=== PATIENT | female | born 1955 | race Caucasian/White ===

== ENCOUNTER → 2018-06-23 08:39 | Outpatient (CLI) | payer OTHER, SELFPAY ==
[2018-06-23 09:04] LABS: Add Manual Diff / Slide Review NO; Basophils Percent Auto 0.9 % (0-2); Eosinophils Percent Auto 1.7 % (2-4); Hemoglobin 14.5 g/dL (12.0-16.0); Lymphocytes Percent Auto 22.5 % (25-40); Mean Corpuscular HGB Conc 34.5 % (30-36); Mean Corpuscular Hemoglobin 30.9 PG (26-34); Mean Corpuscular Volume 89.4 fL (80-100); Monocytes Percent Auto 8.8 % (3-14); Neutrophils Absolute Auto 3900 /uL (3000-5900); Neutrophils Percent Auto 66.1 % (50-75); Platelet Count 301 X10^3/uL (150-400); Red Cell Distribution Width 12.1 % (11.6-14.8); White Blood Cell Count 5.8 X10^3/uL (4.5-11.0)
[2018-06-23 09:22] LABS: BUN Creatinine Ratio 22.9 (6-22); Blood Urea Nitrogen 16 mg/dL (7-17); Calcium 9.7 mg/dL (8.4-10.2); Carbon Dioxide 32 mmol/L (22-32); Chloride 103 mmol/L (98-107); Cholesterol 145 mg/dL (140-199); Estimated Glomerular Filt Rate > 60.0 mL/min (>60); Glucose 91 mg/dL (80-110); HDL Cholesterol 51 mg/dL (40-60); HEMOLYSIS < 15 (0-50); LDL Cholesterol Calculated 72 mg/dL (<100); Potassium 4.6 mmol/L (3.4-5.1); Sodium 143 mmol/L (137-145); Triglycerides 110 mg/dL (35-150)
[2018-06-23 10:08] LABS: Thyroid Stimulating Hormone 3.65 uIU/mL (0.47-4.68)
== END ==
PROVIDERS: PCP Registered Nurse; Visit Provider Registered Nurse
DX: E03.9 Hypothyroidism, unspecified (principal); E78.2 Mixed hyperlipidemia; Z13.9 Encounter for screening, unspecified
CPT/HCPCS: 36415; 80048; 80061; 84443; 85025

== ENCOUNTER → 2018-09-21 10:34 | Outpatient (CLI) | payer OTHER, SELFPAY ==
--- NOTE | 2018-09-21 10:35 | DI.MG.S_ITS ---
BILATERAL DIGITAL SCREENING MAMMOGRAM 3D/2D WITH CAD: 09/21/2018 CLINICAL: Routine screening. Family history of breast cancer. Comparison is made to exams dated: 07/21/2017 mammogram, 07/13/2016 mammogram - The imaging center [facility], and 09/04/2015 mammogram - [facility]. The tissue of both breasts is heterogeneously dense. This may lower the sensitivity of mammography. Current study was also evaluated with a Computer Aided Detection (CAD) system. No significant masses, calcifications, or other findings are seen in either breast. There has been no significant interval change. IMPRESSION: NEGATIVE There is no mammographic evidence of malignancy. A 1 year screening mammogram is recommended. This exam was interpreted at Station ID: [id number]. NOTE: For mammograms, a report in lay terms will be sent to the patient. Approximately 15% of breast malignancies will not be visualized mammographically. In the management of a palpable breast mass, a negative mammogram must not discourage biopsy of a clinically suspicious lesion. Electronically Signed By: Dee erwin/boom:09/21/2018 16:25:30 letter sent: Normal Exam ACR BI-RADS Category 1: Negative 3341F
== END ==
PROVIDERS: Family Provider Family Medicine; PCP Registered Nurse; Visit Provider Registered Nurse
DX: Z12.31 Encounter for screening mammogram for malignant neoplasm of breast (principal); Z80.3 Family history of malignant neoplasm of breast
CPT/HCPCS: 77063; 77067

== ENCOUNTER → 2019-01-13 09:16 | Outpatient (CLI) | payer OTHER, SELFPAY ==
[2019-01-17 12:26] LABS: Fecal Immunochemical Test NOT DETECTED (NOT DETECTED)
== END ==
PROVIDERS: PCP Registered Nurse; Visit Provider Registered Nurse
DX: Z12.11 Encounter for screening for malignant neoplasm of colon (principal); Z12.12 Encounter for screening for malignant neoplasm of rectum
CPT/HCPCS: 82274

== ENCOUNTER → 2019-04-18 11:09 | Outpatient (CLI) | payer OTHER, SELFPAY ==
[2019-04-18 11:58] LABS: Cholesterol 163 mg/dL (140-199); HDL Cholesterol 55 mg/dL (40-60); LDL Cholesterol Calculated 82 mg/dL (<100); Triglycerides 129 mg/dL (35-150)
== END ==
PROVIDERS: PCP Registered Nurse; Visit Provider Registered Nurse
DX: E03.9 Hypothyroidism, unspecified (principal); E78.2 Mixed hyperlipidemia
CPT/HCPCS: 36415; 80061; 84443

== ENCOUNTER → 2019-10-07 12:51 | Outpatient (CLI) | payer OTHER, SELFPAY ==
--- NOTE | 2019-10-07 12:51 | DI.MG.S_ITS ---
BILATERAL DIGITAL SCREENING MAMMOGRAM 3D/2D WITH CAD: 10/07/2019 CLINICAL: Routine screening. Family history of breast cancer. Comparison is made to exams dated: 09/21/2018 mammogram - [facility], 07/21/2017 mammogram, and 07/13/2016 mammogram - The imaging center @ [facility]. The tissue of both breasts is heterogeneously dense. This may lower the sensitivity of mammography. Current study was also evaluated with a Computer Aided Detection (CAD) system. No significant masses, calcifications, or other findings are seen in either breast. There has been no significant interval change. IMPRESSION: NEGATIVE There is no mammographic evidence of malignancy. A 1 year screening mammogram is recommended. This exam was interpreted at Station ID: [id number]. NOTE: For mammograms, a report in lay terms will be sent to the patient. Approximately 15% of breast malignancies will not be visualized mammographically. In the management of a palpable breast mass, a negative mammogram must not discourage biopsy of a clinically suspicious lesion. Electronically Signed By: Dee erwin/boom:10/09/2019 14:58:27 letter sent: Normal Exam ACR BI-RADS Category 1: Negative 3341F
== END ==
PROVIDERS: PCP Registered Nurse; Visit Provider Registered Nurse
DX: Z12.31 Encounter for screening mammogram for malignant neoplasm of breast (principal); Z80.3 Family history of malignant neoplasm of breast
CPT/HCPCS: 77063; 77067

== ENCOUNTER → 2019-10-20 10:38 | Outpatient (CLI) | payer OTHER, SELFPAY ==
[2019-10-20 12:23] LABS: Add Manual Diff / Slide Review NO; Basophils Absolute Auto 0 /uL (0-100); Basophils Percent Auto 0.5 % (0-2); Eosinophils Absolute Auto 100 /uL (0-450); Hematocrit 42.3 % (36-46); Hemoglobin 14.1 g/dL (12.0-16.0); Lymphocytes Absolute Auto 1500 /uL (1100-4500); Lymphocytes Percent Auto 22.7 % (25-40); Mean Corpuscular HGB Conc 33.4 % (30-36); Mean Corpuscular Hemoglobin 30.3 PG (26-34); Mean Corpuscular Volume 90.9 fL (80-100); Monocytes Absolute Auto 600 /uL (0-900); Monocytes Percent Auto 9.1 % (3-14); Neutrophils Absolute Auto 4300 /uL (1500-7000); Neutrophils Percent Auto 66.7 % (50-75); Platelet Count 283 X10^3/uL (150-400); Red Blood Cell Count 4.66 X10^6/uL (4.0-5.2); Red Cell Distribution Width 12.5 % (11.6-14.8); White Blood Cell Count 6.4 X10^3/uL (4.5-11.0)
[2019-10-20 12:39] LABS: Rheumatoid Factor < 8.6 IU/mL (<12.0)
[2019-10-20 12:41] LABS: Erythrocyte Sedimentation Rate 8 MM/HR (0-20)
[2019-10-24 08:36] LABS: ANA Pattern NUCLEAR, SPECKLED; ANA Screen, IFA POSITIVE (NEGATIVE); ANA Titer 1:40 titer
== END ==
PROVIDERS: PCP Registered Nurse; Visit Provider Registered Nurse
DX: M25.50 Pain in unspecified joint (principal)
CPT/HCPCS: 36415; 85025; 85651; 86038; 86430

== ENCOUNTER → 2020-05-09 10:44 | Outpatient (CLI) | payer OTHER, SELFPAY ==
[2020-05-09 12:11] LABS: Cholesterol 183 mg/dL (140-199); HDL Cholesterol 59 mg/dL (40-60); LDL Cholesterol Calculated 96 mg/dL (<100); Triglycerides 141 mg/dL (35-150)
[2020-05-09 12:36] LABS: Thyroid Stimulating Hormone 1.34 uIU/mL (0.47-4.68)
== END ==
PROVIDERS: PCP Nurse Practitioner Family; Referring Provider Nurse Practitioner Family; Visit Provider Nurse Practitioner Family
DX: E78.2 Mixed hyperlipidemia (principal); E03.9 Hypothyroidism, unspecified
CPT/HCPCS: 36415; 80061; 84443

== ENCOUNTER → 2020-07-12 15:51 | Outpatient (CLI) | payer OTHER, SELFPAY ==
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
--- NOTE | 2020-07-12 15:57 | DI.RAD.S_ITS ---
PROCEDURE: XR CERVICAL SPINE 2V OR 3V INDICATIONS: Cervical radiculopathy TECHNIQUE: 3 view(s) of the cervical spine were acquired. COMPARISON: None. FINDINGS: Bones: No fracture. Multilevel degenerative endplate sclerosis and spurring. Diffuse facet arthropathy. Straightening of the normal lordotic curvature. Moderate narrowing of the C5-C6 disc space. Chronic 4 mm ossicle projects adjacent to the anterior C3-C4 disc space. Soft tissues: Carotid atherosclerotic plaques incidentally noted. IMPRESSION: Cervical spondylosis. Straightening of the normal lordotic curvature. Dictated by: Jerardo Vasquez M.D. on 07/12/2020 at 16:25 Approved by: Jerardo Vasquez M.D. on 07/12/2020 at 16:26
== END ==
PROVIDERS: PCP Nurse Practitioner Family; Referring Provider Nurse Practitioner Family; Visit Provider Nurse Practitioner Family
DX: M54.12 Radiculopathy, cervical region (principal); M47.812 Spondylosis without myelopathy or radiculopathy, cervical region; M25.512 Pain in left shoulder
CPT/HCPCS: 72040; 73030

== ENCOUNTER → 2020-10-11 16:01 | Outpatient (CLI) | payer OTHER, SELFPAY ==
--- NOTE | 2020-10-11 | DI.MG.S_ITS ---
BILATERAL DIGITAL SCREENING MAMMOGRAM 3D/2D WITH CAD: 10/11/2020 CLINICAL: Routine screening. Family history of breast cancer. Comparison is made to exams dated: 10/07/2019 mammogram, 09/21/2018 mammogram - [facility], and 07/21/2017 mammogram - The imaging center @ [facility]. The tissue of both breasts is heterogeneously dense. This may lower the sensitivity of mammography. Current study was also evaluated with a Computer Aided Detection (CAD) system. No significant masses, calcifications, or other findings are seen in either breast. There has been no significant interval change. IMPRESSION: NEGATIVE There is no mammographic evidence of malignancy. A 1 year screening mammogram is recommended. This exam was interpreted at Station ID: [id number]. NOTE: For mammograms, a report in lay terms will be sent to the patient. Approximately 15% of breast malignancies will not be visualized mammographically. In the management of a palpable breast mass, a negative mammogram must not discourage biopsy of a clinically suspicious lesion. Electronically Signed By: Harvey maravilla/boom:10/11/2020 16:28:18 letter sent: Normal Exam ACR BI-RADS Category 1: Negative [id number]
== END ==
PROVIDERS: PCP Family Medicine; Referring Provider Family Medicine; Visit Provider Family Medicine
DX: Z12.31 Encounter for screening mammogram for malignant neoplasm of breast (principal); Z80.3 Family history of malignant neoplasm of breast
CPT/HCPCS: 77063; 77067

== ENCOUNTER → 2020-10-22 15:29 | Outpatient (CLI) | payer OTHER, SELFPAY ==
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
== END ==
PROVIDERS: PCP Family Medicine; Referring Provider Orthopaedic Surgery; Visit Provider Orthopaedic Surgery
DX: S46.012A Strain of muscle(s) and tendon(s) of the rotator cuff of left shoulder, initial encounter (principal); M19.012 Primary osteoarthritis, left shoulder; X58.XXXA Exposure to other specified factors, initial encounter
CPT/HCPCS: 73221

== ENCOUNTER 2020-10-30 09:45 | Outpatient (RCR) | payer OTHER, SELFPAY ==
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
== END 2020-11-11 14:42 ==
LOC: PHYS 09:45
PROVIDERS: PCP Nurse Practitioner Family; Referring Provider Nurse Practitioner Family; Visit Provider Nurse Practitioner Family
DX: M25.512 Pain in left shoulder (principal); V89.2XXA Person injured in unspecified motor-vehicle accident, traffic, initial encounter; S92.302A Fracture of unspecified metatarsal bone(s), left foot, initial encounter for closed fracture; R26.2 Difficulty in walking, not elsewhere classified; S63.591S Other specified sprain of right wrist, sequela; G25.89 Other specified extrapyramidal and movement disorders; M75.42 Impingement syndrome of left shoulder
CPT/HCPCS: 97010; 97014; 97018; 97032; 97035; 97110; 97112; 97116; 97140; 97162; 97535; G0283

== ENCOUNTER → 2021-08-19 10:52 | Outpatient (CLI) | payer MEDICARE, OTHER, SELFPAY ==
[2021-08-19 12:30] LABS: Add Manual Diff / Slide Review NO; Basophils Absolute Auto 0 /uL (0-100); Basophils Percent Auto 0.9 % (0-2); Eosinophils Absolute Auto 100 /uL (0-450); Eosinophils Percent Auto 1.5 % (2-4); Hematocrit 41.1 % (36-46); Hemoglobin 13.9 g/dL (12.0-16.0); Lymphocytes Absolute Auto 1300 /uL (1100-4500); Mean Corpuscular HGB Conc 33.9 % (30-36); Mean Corpuscular Hemoglobin 30.5 PG (26-34); Mean Corpuscular Volume 89.9 fL (80-100); Monocytes Absolute Auto 300 /uL (0-900); Monocytes Percent Auto 7.6 % (3-14); Neutrophils Absolute Auto 2500 /uL (1500-7000); Platelet Count 269 X10^3/uL (150-400); Red Blood Cell Count 4.57 X10^6/uL (4.0-5.2); Red Cell Distribution Width 12.5 % (11.6-14.8); White Blood Cell Count 4.2 X10^3/uL (4.5-11.0)
[2021-08-19 13:04] LABS: Alanine Aminotransferase 25 IU/L (<35); Albumin 4.4 g/dL (3.5-5.0); Albumin Globulin Ratio 1.6 (1.0-2.8); Alkaline Phosphatase 74 U/L (38-126); Aspartate Aminotransferase 30 IU/L (14-36); BUN Creatinine Ratio 32.3 (6-22); Bilirubin Total 0.5 mg/dL (0.2-1.3); Blood Urea Nitrogen 21 mg/dL (7-17); Calcium 9.8 mg/dL (8.4-10.2); Carbon Dioxide 27 mmol/L (22-32); Chloride 105 mmol/L (98-107); Cholesterol 175 mg/dL (140-199); Estimated Glomerular Filt Rate > 60.0 mL/min (>60); Globulin 2.8 g/dL (1.7-4.1); Glucose 87 mg/dL (80-110); HDL Cholesterol 54 mg/dL (40-60); HEMOLYSIS < 15 (0-50); LDL Cholesterol Calculated 95 mg/dL (<100); Potassium 4.4 mmol/L (3.4-5.1); Sodium 139 mmol/L (137-145); Total Protein 7.2 g/dL (6.3-8.2); Triglycerides 130 mg/dL (35-150)
[2021-08-19 13:21] LABS: Free T4, Direct Thyroxine 1.05 ng/dL (0.78-2.19)
[2021-08-19 13:35] LABS: Thyroid Stimulating Hormone 0.305 uIU/mL (0.47-4.68)
== END ==
PROVIDERS: PCP Family Medicine; Referring Provider Family Medicine; Visit Provider Family Medicine
DX: Z00.00 Encounter for general adult medical examination without abnormal findings (principal); E08.9 Diabetes mellitus due to underlying condition without complications; E78.2 Mixed hyperlipidemia
CPT/HCPCS: 36415; 80053; 80061; 84439; 84443; 85025

== ENCOUNTER → 2021-09-15 09:26 | Outpatient (CLI) | payer MEDICARE, OTHER, SELFPAY ==
[2021-09-15 12:22] LABS: COVID19 -Nasal RAPID Negative (Negative)
== END ==
PROVIDERS: PCP Family Medicine; Visit Provider Nurse Practitioner Family
DX: Z20.822 Contact with and (suspected) exposure to COVID-19 (principal)
CPT/HCPCS: 87635; C9803

== ENCOUNTER → 2021-09-16 08:14 | Outpatient (CLI) | payer MEDICARE, OTHER, SELFPAY ==
--- NOTE | 2021-09-16 09:02 | PM.TREADMILL ---
Cardiac Stress Test Report Referral & Results Date Patient Seen: 09/16/21 Time Patient Seen: 08:45 Requesting provider: Israel Leyva Indication: History of CAD Rest ECG: NSR Procedure Note: Today following both written and verbal informed consent, the patient was exercised according to a standard Rk protocol. The patient exercised for a total of 7 minutes 48 seconds achieving a maximum heart rate of 159. Patient's maximum systolic blood pressure was 182. This was an estimated 10.1 METs. Normal hemodynamic response to exercise. No changes in rhythm or ST segment. No signs or symptoms of angina. Good exercise capacity (FA I -10% on active scale). Impression: Low probability for ischemia. Razo treadmill score of 7 is correlated with 97% 5 year survival rate from cardiac causes of mortality. Please note: Actual ECG tracings can be found in the PACS system.
== END ==
PROVIDERS: PCP Family Medicine; Referring Provider Family Medicine; Visit Provider Family Medicine
DX: I25.10 Atherosclerotic heart disease of native coronary artery without angina pectoris (principal); E78.2 Mixed hyperlipidemia; E03.9 Hypothyroidism, unspecified
CPT/HCPCS: 93016; 93017; 93018

== ENCOUNTER → 2021-10-14 15:53 | Outpatient (CLI) | payer MEDICARE, OTHER, SELFPAY ==
--- NOTE | 2021-10-14 15:55 | DI.MG.S_ITS ---
BILATERAL DIGITAL SCREENING MAMMOGRAM 3D/2D WITH CAD: 10/14/2021 CLINICAL: Routine screening. Family history of breast cancer. Comparison is made to exams dated: 10/11/2020 mammogram, 10/07/2019 mammogram, and 09/21/2018 mammogram - [facility]. The tissue of both breasts is heterogeneously dense. This may lower the sensitivity of mammography. Current study was also evaluated with a Computer Aided Detection (CAD) system. No significant masses, calcifications, or other findings are seen in either breast. There has been no significant interval change. IMPRESSION: NEGATIVE There is no mammographic evidence of malignancy. A 1 year screening mammogram is recommended. This exam was interpreted at Station ID: [id number]. NOTE: For mammograms, a report in lay terms will be sent to the patient. Approximately 15% of breast malignancies will not be visualized mammographically. In the management of a palpable breast mass, a negative mammogram must not discourage biopsy of a clinically suspicious lesion. Electronically Signed By: Markel english/boom:10/15/2021 08:34:17 letter sent: Normal Exam ACR BI-RADS Category 1: Negative [id number]
== END ==
PROVIDERS: PCP Family Medicine; Referring Provider Family Medicine; Visit Provider Family Medicine
DX: Z12.31 Encounter for screening mammogram for malignant neoplasm of breast (principal); Z80.3 Family history of malignant neoplasm of breast
CPT/HCPCS: 77063; 77067

== ENCOUNTER → 2021-11-19 10:01 | Outpatient (CLI) | payer MEDICARE, OTHER, SELFPAY | PROVIDERS: PCP Family Medicine; Referring Provider Family Medicine; Visit Provider Family Medicine | DX: Z78.0 Asymptomatic menopausal state (principal); M85.852 Other specified disorders of bone density and structure, left thigh; E07.9 Disorder of thyroid, unspecified; M19.90 Unspecified osteoarthritis, unspecified site; Z87.891 Personal history of nicotine dependence | CPT/HCPCS: 77080 ==

== ENCOUNTER 2021-12-15 15:15 | Outpatient (RCR) | payer MEDICARE, OTHER, SELFPAY ==
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
--- NOTE | 2020-12-06 12:44 | PT.OPPOC ---
Physical, Occupational & Speech Therapy At [facility] Current Diagnoses Other specified extrapyramidal and movement disorders (12/06/20) Impingement syndrome of left shoulder (12/06/20) Strain of other muscles, fascia and tendons at shoulder and upper arm level, left arm, initial encounter (12/06/20) Visit Care Team Role Provider Type Israel Leyva DO Primary Care Provider Physician Specialty: Family Practice Address: [address] [place] [address], [id number] Email: [email or web address] Trenton Alas MD Attending Provider Physician Referring Provider Specialty: Orthopedic Surgery Address: [address] [place] [address], [id number] Email: [email or web address] Plan Of Care PT-OP-T Assessment and Plan Start: 12/06/20 11:57 Freq: Status: Active Protocol: Document 12/06/20 09:45 HH (Rec: 12/06/20 12:44 HH [email or web address]) Physical Therapy Assessment Goals activity tolerance Impairment pt will be immobilized for next 6 weeks. Usp Goal (LTG) pt will be able to complete cigarette roller such as house 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 LTG Duration 16 weeks HEP Impairment pt does not ahve hep Short Term Goal (STG) pt will comply to HEP independently and safely with proper body mechanics STG Duration 8 weeks strength Impairment pt will be immobilized for next 6 weeks. Usp Goal (LTG) pt will be able to lift >2lbs DB weight more than 5 times in flexion and abduction in standing position which allows her to reach for objects on the shelf LTG Duration 16 weeks ROM Impairment pt will be immobilized for next 6 weeks. Short Term Goal (STG) pt will regain >90 degrees of flexion and abduction passively on L shoulder STG Duration 8 weeks Usp Goal (LTG) pt will regain > 140 degrees of flexion and abduction actively without pain LTG Duration 16 weeks Quickdash Impairment pt scores 100 on quickdash postsurgically Short Term Goal (STG) pt will score <60 on Quickdash to improve her overall mobility and strength STG Duration 8 weeks Usp Goal (LTG) pt will score <40 on Quickdash to improve her overall functional mobility and strength LTG Duration 16 weeks Assessment Summary Assessment Pt is a L hand dominant 65yo female here for postop rehab with her L RTC repair on . Since surgeon recommended pt to be on her sling for the next 6 weeks followed by continuing PT. This session is primarily for pt education on proper fitting for armsling, post op protocol, therapeutic exercises and ADL modication. Pt is receptive and shows good understanding. And she will surely benefit from skilled therapy to improve her overall shoulder mobility and strength in order for her to fully return to PLOF. Will reassess pt's progress in 6 weeks. Physical Therapy Plan Frequency and Duration Frequency of Treatment 2x/Week Duration of Treatment 16 weeks Plan of Care Start Date 12/06/20 Plan of Care End Date 04/05/21 Therapeutic Interventions Therapeutic Interventions Home Exercise Program,Joint Mobilizations,Manual Therapy, Neuromuscular Re-education, Patient/Caregiver Education, Self-Care/Home Management,Soft Tissue Mobilization,Taping, Therapeutic Activities, Therapeutic Exercises Modalities Cold Pack/Ice Massage,Electric Stimulation,Hot Packs, Infrared Therapy,Ultrasound Next Visit Focus/Plan Next Note Type Re-Evaluation Next Visit Plan reassessment for PROM, scar gentle ROM ex as tolerate. Plan of Care Dates Plan of Care Start Date 12/06/20 Plan of Care End Date 04/05/21 Electronically Signed by: Rita Corbett PT 12/06/20 2999 Please Sign and Return: I have reviewed this Plan of Care and certify that the skilled therapy services above are required to meet the patient?s needs. Physician Signature Date Printed Name and Credentials Clinical Instructor Signature Printed Name and Credentials
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
--- NOTE | 2021-04-01 16:20 | PT.OPPOC ---
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) Impingement syndrome of left shoulder (04/01/21) Strain of other muscles, fascia and tendons at shoulder and upper arm level, left arm, initial encounter (04/01/21) Visit Care Team Role Provider Type Israel Leyva DO Primary Care Provider Physician Specialty: Family Practice Address: [address] [place] [address], [address] Email: [email or web address] Trenton Alas MD Attending Provider Physician Referring Provider Specialty: Orthopedic Surgery Address: [address] [place] [address], [address] Email: [email or web address] Plan Of Care PT-OP-T Assessment and Plan Start: 12/06/20 11:57 Freq: Status: Active Protocol: Document 04/01/21 09:48 [facility] (Rec: 04/01/21 10:32 [facility] [id number]) Physical Therapy Assessment Goals activity tolerance Impairment pt will be immobilized for next 6 weeks. 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 04/01/21: patient has been making good progress, though this date reporting increase in pain and decreased tolerance for activity with left UE. LTG Duration 05/01/21 HEP Impairment pt does not have hep Short Term Goal (STG) pt will comply to HEP independently and safely with proper body mechanics 04/01/21: good goal progress, though tends to push too hard and into pain, continues to need education regarding modifications as needed, don't push into pain. Improved tolerance for prone exercises today after modification to hang arm over side of bed. STG Duration 8 weeks strength Impairment pt will be immobilized for next 6 weeks. Care Home Goal (LTG) pt will be able to lift >2lbs DB weight more than 5 times in flexion and abduction in standing position which allows her to reach for objects on the shelf 04/01/21: again, patient had been making good progress but today reporting increase in pain and impingement symptoms. LTG Duration 16 weeks ROM Impairment pt will be immobilized for next 6 weeks. Short Term Goal (STG) pt will regain >90 degrees of flexion and abduction passively on L shoulder STG Duration goal met Booster Pump Oiler Goal (LTG) pt will regain > 140 degrees of flexion and abduction actively without pain LTG Duration goal met Quickdash Impairment pt scores 100 on quickdash postsurgically Short Term Goal (STG) pt will score <60 on Quickdash to improve her overall mobility and strength 04/01/21: goal met STG Duration goal met Booster Pump Oiler Goal (LTG) pt will score <40 on Quickdash to improve her overall functional mobility and strength 04/01/21: good goal progress LTG Duration 05/01/21 Assessment Summary Assessment Patient has overall been making good progress with decreasing pain and improving left shoulder function, though high stress level has definitely impacted her recovery and she needs cues to not push into pain or impingement range of motion. Has had poor tolerance for prone exercises, but improved with emphasis on scapular movement and stabilization with manual facilitation and hanging arm over side of treatment table for normalization of mechanics. Verbal and manual cues for inhibiting upper traps and facilitating scapular stabilizers. Encouraged use of ice at home, again stressed exercise in pain-free ROM and intensity. Feel decrease in thoracic mobility also affecting left shoulder function and we initiated further thoracic mobilization today. Physical Therapy Plan Frequency and Duration Frequency of Treatment 2x/Week Duration of Treatment 4 weeks Plan of Care Start Date 04/01/21 Plan of Care End Date 05/01/21 Therapeutic Interventions Therapeutic Interventions Home Exercise Program,Joint Mobilizations,Manual Therapy, Neuromuscular Re-education, Patient/Caregiver Education, Self-Care/Home Management,Soft Tissue Mobilization,Taping, Therapeutic Activities, Therapeutic Exercises Modalities Cold Pack/Ice Massage,Electric Stimulation,Hot Packs, Infrared Therapy,Iontophoresis ,Ultrasound Next Visit Focus/Plan Next Note Type Treatment Note Next Visit Plan Continue PT to help patient fully recover use of left UE for all usual activities with minimal to no pain. Scapular PNF and stabilization, emphasis on correct muscle activation and mechanics with all exercises, stress relief techniques. Joint mobilization GH and scapulothoracic as indicated. Plan of Care Dates Plan of Care Start Date 04/01/21 Plan of Care End Date 05/01/21 Electronically Signed by: Keshia Arita, PT 04/01/21 [id number] Please Sign and Return: I have reviewed this Plan of Care and certify that the skilled therapy services above are required to meet the patient?s needs. Physician Signature Date Printed Name and Credentials Clinical Instructor Signature Printed Name and Credentials
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
--- NOTE | 2021-06-24 09:43 | PT.OPPOC ---
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) Impingement syndrome of left shoulder (06/24/21) Strain of other muscles, fascia and tendons at shoulder and upper arm level, left arm, initial encounter (06/24/21) Visit Care Team Role Provider Type Israel Leyva DO Primary Care Provider Physician Specialty: Family Practice Address: [address] [place] [address], [address] Email: [email or web address] Trenton Alas MD Attending Provider Physician Referring Provider Specialty: Orthopedic Surgery Address: [address] [place] [address], [address] Email: [email or web address] Plan Of Care PT-OP-T Assessment and Plan Start: 12/06/20 11:57 Freq: Status: Active Protocol: Document 06/24/21 09:43 [facility] (Rec: 06/24/21 10:32 [facility] [id number]) Physical Therapy Assessment Goals activity tolerance Impairment Unable to tolerate usual activities Vice President Regulatory Goal (LTG) pt will be able to complete administrative support associate such as house 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 04/01/21: patient has been making good progress, though this date reporting increase in pain and decreased tolerance for activity with left UE. 04/29/21: improving though reaching overhead or out to the side with any weight is painful, reaching behind her back still some limitations 06/24/21: can now go for walks without shoulder pain, able to gently use squeegie in shower with left UE, but unable to vacuum, carry groceries, or lift with left UE. LTG Duration 08/24/21 HEP Impairment pt does not have hep Short Term Goal (STG) pt will comply to HEP independently and safely with proper body mechanics 04/01/21: good goal progress, though tends to push too hard and into pain, continues to need education regarding modifications as needed, don't push into pain. Improved tolerance for prone exercises today after modification to hang arm over side of bed. 04/29/21: ongoing progression of HEP 06/24/21: continue to modify and progress HEP as indicated, patient doing better at following modifications instead of trying to push through pain STG Duration 07/24/21 Vice President Regulatory Goal (LTG) Patient will be independent and compliant with HEP and community-based ex program as possible for long-term fitness and pain management of her shoulder. 06/24/21: ongoing progression as above LTG Duration 08/24/21 strength Impairment lacking full functional strength left UE Residential Goal (LTG) pt will be able to lift >2lbs DB weight more than 5 times in flexion and abduction in standing position which allows her to reach for objects on the shelf 04/01/21: again, patient had been making good progress but today reporting increase in pain and impingement symptoms. 04/29/21: Patient unable to tolerate lifting 2# overhead or out to side, having more impingment symptoms recently 06/24/21: variable tolerance, at times can lift objects over head, out to side more difficult, sometimes sharp pain with impingement. strength LTG Duration 08/24/21 ROM Impairment pt will be immobilized for next 6 weeks. Short Term Goal (STG) pt will regain >90 degrees of flexion and abduction passively on L shoulder STG Duration goal met Residential Goal (LTG) Patient to be able to reach overhead to 170 degrees of flexion and abduction actively without pain for purposes of ADL's and usual activities 06/24/21: again ability to do this is variable, harder to the outside, and occasional to frequent sharp pains but not always predicatable. LTG Duration 08/24/21 Quickdash Impairment pt scores 100 on quickdash postsurgically Short Term Goal (STG) pt will score <60 on Quickdash to improve her overall mobility and strength 04/01/21: goal met STG Duration goal met Vice President Regulatory Goal (LTG) pt will score <20 on Quickdash to improve her overall functional mobility and strength 04/01/21: good goal progress 06/24/21: 54% LTG Duration 08/24/21 Assessment Summary Assessment Lower trap weakness persists with dysfunctional scapular mechanics and stabilization resulting in impingment of patient shoulder. Trigger points persist in subscap, lats, rhomboids, reviewed self mobilization and release. She requires verbal and manual cues for correct movement and has difficulty feeling correct movement, with overactivation of UT and decreased LT activation. Continue to instruct in prone exercises with UE over side of table for improved GH movement without impingment and all exercises in pain-free ROM and intensity. Recommend further skilled PT to help patient achieve her above PT goals as at this time her function, while improved is still very limited and frequently painful, highly impacting her quality of life. Physical Therapy Plan Frequency and Duration Frequency of Treatment 1-2x/wk Duration of Treatment 8 weeks Plan of Care Start Date 06/24/21 Plan of Care End Date 08/24/21 Therapeutic Interventions Therapeutic Interventions Home Exercise Program,Joint Mobilizations,Manual Therapy, Neuromuscular Re-education, Patient/Caregiver Education, Self-Care/Home Management,Soft Tissue Mobilization,Taping, Therapeutic Activities, Therapeutic Exercises Modalities Cold Pack/Ice Massage,Electric Stimulation,Hot Packs, Infrared Therapy,Iontophoresis ,Ultrasound Next Visit Focus/Plan Next Note Type Treatment Note Next Visit Plan scapular mobilization, scapulohumeral rhythm, and stabilization, trigger point release, and review of self- release. Strengthening throughout shoulder especially external rotation, lower traps for improved mechanics and function right shoulder Plan of Care Dates Plan of Care Start Date 06/24/21 Plan of Care End Date 08/24/21 Electronically Signed by: Keshia Arita, PT 07/02/21 1795 Please Sign and Return: I have reviewed this Plan of Care and certify that the skilled therapy services above are required to meet the patient?s needs. Physician Signature Date Printed Name and Credentials Clinical Instructor Signature Printed Name and Credentials
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
--- NOTE | 2021-07-15 08:14 | PT-OP ANOTE ---
cancelled 07/15,07/17,and 07/21 due to another commitment.
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
--- NOTE | 2021-09-24 10:04 | PT-OP ANOTE ---
cancelled PT appt
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
== END 2021-12-19 09:39 ==
LOC: PHYS 15:15
PROVIDERS: PCP Family Medicine; Referring Provider Physical Medicine & Rehabilitation; Visit Provider Orthopaedic Surgery
DX: S46.812A Strain of other muscles, fascia and tendons at shoulder and upper arm level, left arm, initial encounter (principal); G25.89 Other specified extrapyramidal and movement disorders; M75.42 Impingement syndrome of left shoulder; S46.012A Strain of muscle(s) and tendon(s) of the rotator cuff of left shoulder, initial encounter; M79.672 Pain in left foot; G89.29 Other chronic pain; M25.512 Pain in left shoulder; S62.307A Unspecified fracture of fifth metacarpal bone, left hand, initial encounter for closed fracture
CPT/HCPCS: 97010; 97110; 97113; 97140; 97161; 97535

== ENCOUNTER → 2022-02-19 11:47 | Outpatient (CLI) | payer MEDICARE, OTHER, SELFPAY ==
[2022-02-19 12:15] LABS: Add Manual Diff / Slide Review NO; Basophils Absolute Auto 0 /uL (0-100); Basophils Percent Auto 0.7 % (0-2); Eosinophils Absolute Auto 100 /uL (0-450); Eosinophils Percent Auto 1.6 % (2-4); Hematocrit 38.8 % (36-46); Hemoglobin 13.6 g/dL (12.0-16.0); Lymphocytes Absolute Auto 1300 /uL (1100-4500); Lymphocytes Percent Auto 26.5 % (25-40); Mean Corpuscular HGB Conc 35.1 % (30-36); Mean Corpuscular Hemoglobin 30.7 PG (26-34); Mean Corpuscular Volume 87.3 fL (80-100); Monocytes Absolute Auto 400 /uL (0-900); Monocytes Percent Auto 8.6 % (3-14); Neutrophils Absolute Auto 3100 /uL (1500-7000); Neutrophils Percent Auto 62.6 % (50-75); Platelet Count 287 X10^3/uL (150-400); Red Blood Cell Count 4.44 X10^6/uL (4.0-5.2); Red Cell Distribution Width 11.9 % (11.6-14.8)
[2022-02-19 13:01] LABS: Alanine Aminotransferase 20 IU/L (<35); Albumin 4.4 g/dL (3.5-5.0); Albumin Globulin Ratio 1.6 (1.0-2.8); Alkaline Phosphatase 81 U/L (38-126); Aspartate Aminotransferase 26 IU/L (14-36); BUN Creatinine Ratio 21.9 (6-22); Bilirubin Total 0.5 mg/dL (0.2-1.3); Blood Urea Nitrogen 14 mg/dL (7-17); Calcium 9.5 mg/dL (8.4-10.2); Carbon Dioxide 26 mmol/L (22-32); Chloride 104 mmol/L (98-107); Cholesterol 146 mg/dL (140-199); Estimated Glomerular Filt Rate > 60 mL/min (>60); Globulin 2.7 g/dL (1.7-4.1); Glucose 87 mg/dL (80-110); HDL Cholesterol 47 mg/dL (40-60); HEMOLYSIS < 15 (0-50); LDL Cholesterol Calculated 75 mg/dL (<100); Potassium 4.3 mmol/L (3.4-5.1); Sodium 137 mmol/L (137-145); Total Protein 7.1 g/dL (6.3-8.2); Triglycerides 121 mg/dL (35-150)
[2022-02-19 13:35] LABS: Thyroid Stimulating Hormone 1.23 uIU/mL (0.47-4.68)
== END ==
PROVIDERS: PCP Family Medicine; Referring Provider Family Medicine; Visit Provider Family Medicine
DX: E78.2 Mixed hyperlipidemia (principal); E03.9 Hypothyroidism, unspecified; M25.50 Pain in unspecified joint
CPT/HCPCS: 36415; 80053; 80061; 84439; 84443; 85025

== ENCOUNTER → 2022-10-20 15:06 | Outpatient (CLI) | payer MEDICARE, OTHER, SELFPAY ==
--- NOTE | 2022-10-20 | DI.MG.S_ITS ---
BILATERAL DIGITAL SCREENING MAMMOGRAM 3D/2D WITH CAD: 10/20/2022 CLINICAL: Routine screening. Family history of breast cancer. Comparison is made to exams dated: 10/14/2021 mammogram, 10/11/2020 mammogram, and 10/07/2019 mammogram - [facility]. Both breasts are heterogeneously dense, which may obscure small masses (category c / 51-75% glandular tissue). Current study was also evaluated with a Computer Aided Detection (CAD) system. No significant masses, calcifications, or other findings are seen in either breast. There has been no significant interval change. IMPRESSION: NEGATIVE There is no mammographic evidence of malignancy. A 1 year screening mammogram is recommended. This exam was interpreted at Station ID: [id number]. NOTE: For mammograms, a report in lay terms will be sent to the patient. Approximately 15% of breast malignancies will not be visualized mammographically. In the management of a palpable breast mass, a negative mammogram must not discourage biopsy of a clinically suspicious lesion. Electronically Signed By: Dee erwin/boom:10/21/2022 09:00:02 letter sent: Normal Exam ACR BI-RADS Category 1: Negative [id number]
== END ==
PROVIDERS: PCP Family Medicine; Referring Provider Family Medicine; Visit Provider Family Medicine
DX: Z12.31 Encounter for screening mammogram for malignant neoplasm of breast (principal); Z80.3 Family history of malignant neoplasm of breast
CPT/HCPCS: 77063; 77067

== ENCOUNTER → 2022-10-23 09:38 | Outpatient (CLI) | payer MEDICARE, OTHER, SELFPAY ==
--- NOTE | 2022-10-23 09:43 | DI.RAD.S_ITS ---
PROCEDURE: XR KNEE LT 3V INDICATIONS: Bilateral knee pain TECHNIQUE: 3 views of the knee were acquired. COMPARISON: [facility], KNEE 3V LEFT, 09/02/2011, 9:36. [facility], KNEE 3V RIGHT, 09/02/2011, 9:42. FINDINGS: Bones: No acute fracture or dislocation. No suspicious osseous lesions. Mild progression of moderate left medial and lateral femorotibial compartment degenerative changes. Progression of moderate-severe patellofemoral degenerative changes with increased, near complete joint space loss of the lateral facet. Prominent marginal osteophytes. Mild lateral subluxation. Soft tissues: Small joint effusion. No suspicious soft tissue calcifications. IMPRESSION: Left knee without acute fracture or dislocation. Interval progression of tricompartmental osteoarthrosis of the left knee most severe in the lateral patellofemoral compartment. Small joint effusion. Dictated by: Benito Lin M.D. on 10/23/2022 at 10:40 Approved by: Benito Lin M.D. on 10/23/2022 at 10:42
--- NOTE | 2022-10-23 09:43 | DI.RAD.S_ITS ---
PROCEDURE: XR KNEE RT 3V INDICATIONS: Bilateral knee pain TECHNIQUE: 3 views of the knee were acquired. COMPARISON: [facility], , KNEE 3V RIGHT, 09/02/2011, 9:42. FINDINGS: Bones: No fractures or dislocations. No suspicious bony lesions. Progression of moderate tricompartmental degenerative changes of the right knee with marginal osteophyte formation. Findings are most pronounced in the medial femorotibial compartment and the lateral facet of the patellofemoral compartment. Soft tissues: Small joint effusion. No suspicious soft tissue calcifications. IMPRESSION: Moderate tricompartmental osteoarthrosis of the right knee with small joint effusion. Degenerative changes have progressed compared to September 02, 2011 study. No acute osseous abnormality seen. Dictated by: Benito Lin M.D. on 10/23/2022 at 15:14 Approved by: Benito Lin M.D. on 10/23/2022 at 15:16
[2022-10-23 10:57] LABS: Add Manual Diff / Slide Review NO; Basophils Absolute Auto 0 /uL (0-100); Basophils Percent Auto 0.8 % (0-2); Eosinophils Absolute Auto 100 /uL (0-450); Eosinophils Percent Auto 1.1 % (2-4); Hematocrit 41.5 % (36-46); Hemoglobin 13.9 g/dL (12.0-16.0); Lymphocytes Absolute Auto 1400 /uL (1100-4500); Mean Corpuscular HGB Conc 33.5 % (30-36); Mean Corpuscular Hemoglobin 30.3 PG (26-34); Mean Corpuscular Volume 90.4 fL (80-100); Monocytes Absolute Auto 400 /uL (0-900); Monocytes Percent Auto 7.8 % (3-14); Neutrophils Absolute Auto 3600 /uL (1500-7000); Neutrophils Percent Auto 65.3 % (50-75); Platelet Count 281 X10^3/uL (150-400); Red Blood Cell Count 4.59 X10^6/uL (4.0-5.2); Red Cell Distribution Width 12.2 % (11.6-14.8); White Blood Cell Count 5.5 X10^3/uL (4.5-11.0)
[2022-10-23 11:13] LABS: Alanine Aminotransferase 32 IU/L (<35); Alkaline Phosphatase 86 U/L (38-126); Aspartate Aminotransferase 35 IU/L (14-36); BUN Creatinine Ratio 20.6 (6-22); Bilirubin Total 0.7 mg/dL (0.2-1.3); Blood Urea Nitrogen 13 mg/dL (7-17); Calcium 9.6 mg/dL (8.4-10.2); Carbon Dioxide 28 mmol/L (22-32); Chloride 105 mmol/L (98-107); Cholesterol 173 mg/dL (140-199); Estimated Glomerular Filt Rate > 60 mL/min (>60); Glucose 88 mg/dL (80-110); HDL Cholesterol 61 mg/dL (40-60); HEMOLYSIS < 15 (0-50); LDL Cholesterol Calculated 88 mg/dL (<100); Potassium 4.2 mmol/L (3.4-5.1); Sodium 139 mmol/L (137-145); Total Protein 7.6 g/dL (6.3-8.2); Triglycerides 121 mg/dL (35-150)
[2022-10-23 11:36] LABS: Free T4, Direct Thyroxine 1.11 ng/dL (0.78-2.19)
[2022-10-23 11:50] LABS: Thyroid Stimulating Hormone 2.14 uIU/mL (0.47-4.68)
[2022-10-23 16:43] LABS: Albumin 4.5 g/dL (3.5-5.0); Albumin Globulin Ratio 1.5 (1.0-2.8); Globulin 3.1 g/dL (1.7-4.1)
== END ==
PROVIDERS: PCP Family Medicine; Referring Provider Family Medicine; Visit Provider Family Medicine
DX: M17.0 Bilateral primary osteoarthritis of knee (principal); M25.561 Pain in right knee; M25.562 Pain in left knee; M25.462 Effusion, left knee; M25.461 Effusion, right knee; E03.9 Hypothyroidism, unspecified; E78.2 Mixed hyperlipidemia; K59.01 Slow transit constipation
CPT/HCPCS: 36415; 73562; 80053; 80061; 84439; 84443; 85025

== ENCOUNTER → 2023-04-08 16:32 | Outpatient (CLI) | payer MEDICARE, OTHER, SELFPAY ==
--- NOTE | 2023-04-08 | DI.RAD.S_ITS ---
PROCEDURE: XR LUMBAR SPINE 2-3V INDICATIONS: low back pain TECHNIQUE: 3 views of the lumbar spine were acquired. COMPARISON: None. FINDINGS: Bones: 5 [id number] vertebrae are present. There is 4 mm grade 1 anterolisthesis of L4 on L5. No vertebral body compression fractures. No suspicious bony lesions. Multilevel disc space narrowing and degenerative endplate changes are seen, most prominent L3-4 and L5-S1. Multilevel facet hypertrophy is seen that is most notable at the L4-5 level. Soft tissues: Overlying bowel gas pattern is normal. No suspicious soft tissue calcifications. IMPRESSION: Moderate multilevel spondylosis and degenerative spondylolisthesis. MRI could be performed for further evaluation if indicated clinically. Approved by: Markel Diaz M.D. on 04/08/2023 at 20:38
== END ==
PROVIDERS: PCP Family Medicine; Referring Provider Family Medicine; Visit Provider Family Medicine
DX: M47.816 Spondylosis without myelopathy or radiculopathy, lumbar region (principal); M43.16 Spondylolisthesis, lumbar region; M54.50 Low back pain, unspecified
CPT/HCPCS: 72100

== ENCOUNTER → 2023-04-22 11:12 | Outpatient (CLI) | payer MEDICARE, OTHER, SELFPAY ==
[2023-04-22 13:42] LABS: Alanine Aminotransferase 37 IU/L (<35); Albumin 4.4 g/dL (3.5-5.0); Albumin Globulin Ratio 1.6 (1.0-2.8); Alkaline Phosphatase 81 U/L (38-126); Aspartate Aminotransferase 31 IU/L (14-36); BUN Creatinine Ratio 36.7 (6-22); Bilirubin Total 0.6 mg/dL (0.2-1.3); Blood Urea Nitrogen 22 mg/dL (7-17); Calcium 9.6 mg/dL (8.4-10.2); Carbon Dioxide 27 mmol/L (22-32); Chloride 102 mmol/L (98-107); Cholesterol 192 mg/dL (140-199); Estimated Glomerular Filt Rate > 60 mL/min (>60); Globulin 2.7 g/dL (1.7-4.1); Glucose 81 mg/dL (80-110); HDL Cholesterol 67 mg/dL (40-60); HEMOLYSIS < 15 (0-50); LDL Cholesterol Calculated 98 mg/dL (<100); Potassium 4.7 mmol/L (3.4-5.1); Sodium 136 mmol/L (137-145); Total Protein 7.1 g/dL (6.3-8.2); Triglycerides 135 mg/dL (35-150)
[2023-04-22 13:54] LABS: Free T4, Direct Thyroxine 1.02 ng/dL (0.78-2.19)
[2023-04-22 14:08] LABS: Thyroid Stimulating Hormone 1.03 uIU/mL (0.47-4.68)
== END ==
PROVIDERS: PCP Family Medicine; Referring Provider Family Medicine; Visit Provider Family Medicine
DX: E03.9 Hypothyroidism, unspecified (principal); E78.2 Mixed hyperlipidemia; M85.852 Other specified disorders of bone density and structure, left thigh
CPT/HCPCS: 36415; 80053; 80061; 84439; 84443

== ENCOUNTER → 2023-07-07 10:45 | Outpatient (CLI) | payer MEDICARE, OTHER, SELFPAY ==
--- NOTE | 2023-07-07 10:47 | DI.MRI.S_ITS ---
PROCEDURE: MR HIP LT WO CON INDICATIONS: Hip pain Left TECHNIQUE: Noncontrast coronal T1 spin echo and STIR through the bony pelvis. Coronal and axial T2 fast spin echo with fat saturation, sagittal T1 spin echo, and oblique axial T2 fast spin echo with fat saturation through the hip. COMPARISON: None. FINDINGS: Image quality: Excellent. Bones and joints: Bone marrow of the pelvic ring and proximal femurs show normal signal throughout. No intraosseous lesions or fractures. No avascular necrosis of the femoral heads. Degenerative changes are seen at the pubic symphysis and the included lumbar spine. Tendons and ligaments: The gluteus medius and minimus tendons demonstrate tendinosis. There is focal low-grade partial intrasubstance tearing at the gluteus medius insertion with trace overlying trochanteric bursal fluid. The proximal iliotibial band appears intact. The iliopsoas tendon appears intact, without adjacent bursal fluid collections. The origin of the hamstring tendon demonstrates mild tendinosis. The direct and indirect heads of the rectus femoris muscle origin appear intact. Labrum and cartilage: There is focal nondisplaced tearing at the anterosuperior acetabular labrum. Mild partial-thickness cartilage irregularity at the superior aspect of the left hip. No significant joint effusion. There is normal morphology of the femoral head in the acetabulum. Soft tissues: Visualized muscles demonstrate normal bulk and internal signal. Quadratus femoris muscle demonstrates no internal edema to suggest ischiofemoral impingement. The proximal sciatic neurovascular bundle appears intact. A uterine fibroid is noted. No acute abnormality is seen in the pelvis. IMPRESSION: 1. Focal nondisplaced tearing of the anterosuperior left acetabular labrum. 2. 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 3. Low-grade partial tearing of the distal left gluteus medius tendon at its insertion onto the greater trochanter superimposed on gluteus medius and minimus tendinosis. 4. Mild proximal left hamstring tendinosis. 5. Degenerative changes in the pubic symphysis and included lumbar spine. Approved by: Markel Diaz M.D. on 07/07/2023 at 14:07
--- NOTE | 2023-07-07 10:47 | DI.MRI.S_ITS ---
PROCEDURE: MR HIP RT WO CON INDICATIONS: Right hip pain TECHNIQUE: Noncontrast coronal T1 spin echo and STIR through the bony pelvis. Coronal and axial T2 fast spin echo with fat saturation, sagittal T1 spin echo, and oblique axial T2 fast spin echo with fat saturation through the hip. COMPARISON: None. FINDINGS: Image quality: Excellent. Bones and joints: Bone marrow of the pelvic ring and proximal femurs show normal signal throughout. No intraosseous lesions or fractures. No avascular necrosis of the femoral heads. Degenerative changes are seen at the pubic symphysis and the included lumbar spine. Tendons and ligaments: The gluteus medius and minimus tendons demonstrate mild tendinosis. The proximal iliotibial band appears intact. The iliopsoas tendon appears intact, without adjacent bursal fluid collections. The origin of the hamstring tendon demonstrates mild tendinosis. The direct and indirect heads of the rectus femoris muscle origin appear intact. Labrum and cartilage: Mild intrasubstance degeneration within the right acetabular labrum without a discrete tear seen. Moderate partial-thickness cartilage irregularity at the superior aspect of the right hip with cartilage fissuring and focal subchondral cystic changes. Small small joint effusion. There is normal morphology of the femoral head in the acetabulum. Soft tissues: Visualized muscles demonstrate normal bulk and internal signal. Quadratus femoris muscle demonstrates no internal edema to suggest ischiofemoral impingement. The proximal sciatic neurovascular bundle appears intact. A uterine fibroid is noted. No acute abnormality is seen in the pelvis. IMPRESSION: 1. Grade 2-3 chondromalacia and cartilage fissuring at the superior right hip with focal subchondral cystic changes. 2. Diffuse labral degeneration without a discrete tear visualized. 3. Mild distal right gluteus medius and minimus tendinosis. 4. Mild proximal right hamstring tendinosis. 5. Degenerative changes in the pubic symphysis and included lumbar spine. Approved by: Markel Diaz M.D. on 07/07/2023 at 14:07
--- NOTE | 2023-07-07 10:47 | DI.MRI.S_ITS ---
PROCEDURE: MR LUMBAR SPINE WO CON INDICATIONS: ongoing back pain despite PT TECHNIQUE: Noncontrast sagittal T1 spin echo and T2 fast echo, sagittal STIR, and T2 fast spin echo through the lumbar spine. In cases with scoliosis, additional coronal T2 fast spin echo may be performed. COMPARISON: [facility], CR, XR LUMBAR SPINE 2-3V, 04/08/2023, 16:35. FINDINGS: Image quality: Diagnostic, with note made of motion artifact. Alignment and Curvature: There is minimal retrolisthesis seen at the L2-L3 and L3-L4 levels. Mild grade 1 anterolisthesis is seen at L4-L5. No definite associated pars defects are seen. Bone Marrow: Marrow is of normal overall signal. No acute vertebral body compression fractures. Spinal Cord: Conus medullaris terminates at the L1 level. Visualized cord demonstrates normal signal and size. Paraspinous Soft Tissues: No paravertebral masses. T12-L1: Normal appearance. L1-L2: Normal appearance. L2-L3: The disc height and disk signal are relatively well-preserved. Moderate disc bulge is seen, which is eccentric to the right. Mild facet joint hypertrophy is seen. There is moderate left-sided and at least moderate right-sided neural foraminal narrowing. There is a mild degree of compression seen upon the exiting right L2 nerve root. Mild central canal narrowing is seen. L3-L4: Ejtq-en-ovjirask loss of disc height and disc signal can be seen. Moderate generalized disc bulge is seen. Mild to moderate facet hypertrophy is seen. Associated hypertrophy of the ligamentum flavum can be seen. There is moderate to severe bilateral neural foraminal narrowing seen, with an associated a degree of compression seen upon the exiting nerve roots. At least moderate central canal narrowing is seen, as on series 6, image 4. L4-L5: The disc height and disk signal are relatively well-preserved. Moderate generalized disc bulge is seen. There is a superimposed central disc protrusion. Moderate to prominent facet hypertrophy is seen. Associated hypertrophy of the ligamentum flavum can be seen. Fluid is seen within the facet joints themselves. There is moderate to severe bilateral neural foraminal narrowing seen, with an associated a degree of compression seen upon the exiting nerve roots. There is severe central canal narrowing, as on series 6, image 10. L5-S1: Moderate to severe loss of disc height and disc signal can be seen. Reactive marrow endplate changes are seen, which are hyperintense on T1-weighted and T2-weighted imaging and most consistent with fatty metaplasia (Modic type II changes). Moderate disc bulge is seen, which is eccentric to the left. Mild to moderate facet hypertrophy is seen. There is moderate to severe left-sided and at least moderate right-sided neural foraminal narrowing. There is a degree of compression seen upon the exiting nerve roots. Mild central canal narrowing is seen. IMPRESSION: Multiple levels of significant lower lumbar spine degenerative change can be seen. There is severe central canal narrowing at L4-L5, with at least moderate central canal narrowing at L3-L4. Several sites of significant neural foraminal narrowing can be seen, with associated exiting nerve root compression. Dictated by: Adrian York M.D. on 07/07/2023 at 11:30 Approved by: Adrian York M.D. on 07/07/2023 at 11:34
== END ==
PROVIDERS: PCP Family Medicine; Referring Provider Family Medicine; Visit Provider Family Medicine
DX: M54.41 Lumbago with sciatica, right side (principal); G89.29 Other chronic pain; M25.551 Pain in right hip; M25.552 Pain in left hip; M48.061 Spinal stenosis, lumbar region without neurogenic claudication; M94.251 Chondromalacia, right hip; M76.01 Gluteal tendinitis, right hip; M76.891 Other specified enthesopathies of right lower limb, excluding foot; S73.192A Other sprain of left hip, initial encounter; M94.252 Chondromalacia, left hip; S76.812A Strain of other specified muscles, fascia and tendons at thigh level, left thigh, initial encounter; M76.02 Gluteal tendinitis, left hip; M76.892 Other specified enthesopathies of left lower limb, excluding foot
CPT/HCPCS: 72148; 73721

== ENCOUNTER → 2023-09-01 09:33 | Outpatient (CLI) | payer MEDICARE, OTHER, SELFPAY ==
[2023-09-01 11:10] LABS: Alanine Aminotransferase 64 IU/L (<35); Albumin 4.4 g/dL (3.5-5.0); Albumin Globulin Ratio 1.6 (1.0-2.8); Alkaline Phosphatase 79 U/L (38-126); Aspartate Aminotransferase 49 IU/L (14-36); BUN Creatinine Ratio 21.7 (6-22); Bilirubin Total 0.8 mg/dL (0.2-1.3); Blood Urea Nitrogen 15 mg/dL (7-17); Calcium 9.7 mg/dL (8.4-10.2); Carbon Dioxide 28 mmol/L (22-32); Chloride 103 mmol/L (98-107); Cholesterol 153 mg/dL (140-199); Estimated Glomerular Filt Rate > 60 mL/min (>60); Globulin 2.8 g/dL (1.7-4.1); Glucose 88 mg/dL (80-110); HDL Cholesterol 49 mg/dL (40-60); HEMOLYSIS < 15 (0-50); LDL Cholesterol Calculated 76 mg/dL (<100); Sodium 136 mmol/L (137-145); Total Protein 7.2 g/dL (6.3-8.2); Triglycerides 139 mg/dL (35-150)
[2023-09-01 11:23] LABS: Free T4, Direct Thyroxine 1.12 ng/dL (0.78-2.19)
[2023-09-01 11:37] LABS: Thyroid Stimulating Hormone 2.74 uIU/mL (0.47-4.68)
== END ==
PROVIDERS: PCP Family Medicine; Referring Provider Family Medicine; Visit Provider Family Medicine
DX: E03.9 Hypothyroidism, unspecified (principal); E78.2 Mixed hyperlipidemia
CPT/HCPCS: 36415; 80053; 80061; 84439; 84443

== ENCOUNTER → 2023-11-09 11:19 | Outpatient (CLI) | payer MEDICARE, OTHER, SELFPAY ==
--- NOTE | 2023-11-09 | DI.MG.S_ITS ---
BILATERAL DIGITAL SCREENING MAMMOGRAM 3D/2D WITH CAD: 11/09/2023 CLINICAL: Routine screening. Family history of breast cancer. Comparison is made to exams dated: 10/20/2022 mammogram, 10/14/2021 mammogram, and 10/11/2020 mammogram - [facility]. Both breasts are heterogeneously dense, which may obscure small masses (category c / 51-75% glandular tissue). Current study was also evaluated with a Computer Aided Detection (CAD) system. No significant masses, calcifications, or other findings are seen in either breast. There has been no significant interval change. IMPRESSION: NEGATIVE There is no mammographic evidence of malignancy. A 1 year screening mammogram is recommended. Based on the Tyrer Cuzick model (a risk assessment model) the patient's lifetime risk is 18.8% and her 10 year risk is 10.2%. According to the ACR, ACS, and NCCN guidelines, an annual breast MRI exam along with mammogram is recommended if the patient's lifetime risk is 20% or greater. This exam was interpreted at Station ID: [id number]. NOTE: For mammograms, a report in lay terms will be sent to the patient. Approximately 15% of breast malignancies will not be visualized mammographically. In the management of a palpable breast mass, a negative mammogram must not discourage biopsy of a clinically suspicious lesion. Electronically Signed By: Markel english/boom:11/09/2023 13:32:22 letter sent: Normal Exam ACR BI-RADS Category 1: Negative [id number]
== END ==
LOC: MAMMO 11:20
PROVIDERS: PCP Family Medicine; Referring Provider Family Medicine; Visit Provider Family Medicine
DX: Z12.31 Encounter for screening mammogram for malignant neoplasm of breast (principal); Z80.3 Family history of malignant neoplasm of breast
CPT/HCPCS: 77063; 77067

== ENCOUNTER → 2023-12-08 08:32 | Outpatient (CLI) | payer MEDICARE, OTHER, SELFPAY ==
[2023-12-08 09:27] LABS: Alanine Aminotransferase 27 IU/L (<35); Albumin 4.5 g/dL (3.5-5.0); Albumin Globulin Ratio 1.4 (1.0-2.8); Alkaline Phosphatase 76 U/L (38-126); Aspartate Aminotransferase 31 IU/L (14-36); BUN Creatinine Ratio 32.9 (6-22); Bilirubin Total 0.8 mg/dL (0.2-1.3); Blood Urea Nitrogen 24 mg/dL (7-17); Carbon Dioxide 30 mmol/L (22-32); Chloride 104 mmol/L (98-107); Estimated Glomerular Filt Rate > 60 mL/min (>60); Globulin 3.2 g/dL (1.7-4.1); Glucose 88 mg/dL (80-110); HEMOLYSIS < 15 (0-50); Potassium 4.9 mmol/L (3.4-5.1); Sodium 137 mmol/L (137-145); Total Protein 7.7 g/dL (6.3-8.2)
[2023-12-08 09:37] LABS: Free T4, Direct Thyroxine 1.01 ng/dL (0.78-2.19); Vitamin D 25 Hydroxy (D3) 39.1 ng/mL (30.0-100.0)
[2023-12-08 09:51] LABS: Thyroid Stimulating Hormone 2.33 uIU/mL (0.47-4.68)
[2023-12-08 16:00] LABS: Cholesterol 171 mg/dL (140-199); HDL Cholesterol 58 mg/dL (40-60); LDL Cholesterol Calculated 91 mg/dL (<100); Triglycerides 110 mg/dL (35-150)
== END ==
PROVIDERS: PCP Family Medicine; Referring Provider Family Medicine; Visit Provider Family Medicine
DX: E03.9 Hypothyroidism, unspecified (principal); M85.852 Other specified disorders of bone density and structure, left thigh; R53.83 Other fatigue; M15.9 Polyosteoarthritis, unspecified; M54.41 Lumbago with sciatica, right side; G89.29 Other chronic pain; E78.2 Mixed hyperlipidemia
CPT/HCPCS: 36415; 80053; 80061; 82306; 84439; 84443

== ENCOUNTER → 2024-04-13 08:30 | Outpatient (CLI) | payer MEDICARE, OTHER, SELFPAY ==
[2024-04-13 10:33] LABS: Alanine Aminotransferase 25 IU/L (<35); Albumin 4.5 g/dL (3.5-5.0); Albumin Globulin Ratio 1.6 (1.0-2.8); Alkaline Phosphatase 77 U/L (38-126); Aspartate Aminotransferase 32 IU/L (14-36); BUN Creatinine Ratio 27.6 (6-22); Bilirubin Total 0.6 mg/dL (0.2-1.3); Blood Urea Nitrogen 16 mg/dL (7-17); Calcium 9.6 mg/dL (8.4-10.2); Carbon Dioxide 28 mmol/L (22-32); Chloride 104 mmol/L (98-107); Cholesterol 184 mg/dL (140-199); Estimated Glomerular Filt Rate > 60 mL/min (>60); Globulin 2.8 g/dL (1.7-4.1); Glucose 89 mg/dL (80-110); HDL Cholesterol 69 mg/dL (40-60); HEMOLYSIS < 15 (0-50); LDL Cholesterol Calculated 95 mg/dL (<100); Potassium 4.4 mmol/L (3.4-5.1); Sodium 138 mmol/L (137-145); Total Protein 7.3 g/dL (6.3-8.2); Triglycerides 98 mg/dL (35-150)
== END ==
PROVIDERS: PCP Family Medicine; Referring Provider Family Medicine; Visit Provider Family Medicine
DX: E78.2 Mixed hyperlipidemia (principal); E03.9 Hypothyroidism, unspecified
CPT/HCPCS: 36415; 80053; 80061

== ENCOUNTER → 2024-04-25 14:20 | Outpatient (CLI) | payer MEDICARE, OTHER, SELFPAY ==
--- NOTE | 2024-04-25 14:21 | DI.RAD.S_ITS ---
PROCEDURE: XR CERVICAL SPINE 2V OR 3V INDICATIONS: persistent neck pain TECHNIQUE: 3 view(s) of the cervical spine were acquired. COMPARISON: [facility], CR, XR CERVICAL SPINE 2V OR 3V, 07/12/2020, 15:49. FINDINGS: Bones: No fractures or dislocations to the C7 level. The lateral masses of C1 appear intact on the odontoid view. No suspicious bony lesions. Anterior and posterior osteophytes at C5-C6. Multilevel disc height loss and facet arthropathy. Soft tissues: No prevertebral soft tissue swelling. There is straightening of cervical lordosis. Radiopaque density projecting over the C2 vertebral body. IMPRESSION: 1. No acute fracture or subluxation. 2. Multilevel disc height loss and facet arthropathy. 3. There is straightening of cervical lordosis. This finding can be seen in patients with muscle spasms. Dictated by: Joseph Vora M.D. on 04/25/2024 at 16:23 Approved by: Joseph Vora M.D. on 04/25/2024 at 16:30
== END ==
PROVIDERS: PCP Family Medicine; Referring Provider Family Medicine; Visit Provider Family Medicine
DX: M54.2 Cervicalgia (principal); M47.812 Spondylosis without myelopathy or radiculopathy, cervical region
CPT/HCPCS: 72040

== ENCOUNTER → 2024-06-15 12:42 | Outpatient (CLI) | payer MEDICARE, OTHER, SELFPAY ==
--- NOTE | 2024-06-15 12:43 | DI.RAD.S_ITS ---
PROCEDURE: XR DEXA AXIAL SKELETON INDICATIONS: MENOPAUSAL DISORDER COMPARISON: [facility], CR, XR DEXA AXIAL SKELETON, 11/19/2021, 10:42. [facility], CR, DEXA AXIAL SKELETON, 04/09/2014, 10:10. FINDINGS: Lumbar Spine: Bone mineral density 1.1 to g/cm2, T score 0.7, previously 1. Left Hip: Bone mineral density 0.79 g/cm2, T score -1.2, previously -0.9. Left Femoral Neck: Bone mineral density 0.66 g/cm2, T score -1.7, previously -1.4. Right Hip: Bone mineral density 0.83 g/cm2, T score -0.9, previously -0.7. Right Femoral Neck: Bone mineral density 0.7 g/cm2, T score -1.3, previously -1. Fracture Risk Calculation (when applicable): 10-year fracture risk of a major osteoporotic fracture 17% and of a hip fracture 2.3%. (T score greater or equal to -1.0 to: NORMAL) (T score from -1.1 to -2.4: OSTEOPENIA) (T score less than or equal to -2.5: OSTEOPOROSIS) IMPRESSION: Osteopenia, with fracture risk calculations as above. T-scores are slightly decreased from prior. Follow-up guidelines as follows: Osteoporosis: Consider a repeat DEXA and Vertebral Fracture Assessment (VFA) exam in 2 years or sooner if medically necessary, to reassess this patient's status. Osteopenia: Consider a repeat DEXA in 2-3 years to reassess this patient's status, or if there is a new clinical indication. Normal: Consider a repeat DEXA in 5 years or sooner, or if there is a new clinical indication. All treatment decisions require clinical judgment and consideration of individual patient factors, including patient preferences, comorbidities, previous drug use, risk factors not captured in the FRAX model (e.g., frailty, falls, vitamin D deficiency, increased bone turnover, interval significant decline in bone density ) and possible under- or over-estimation of fracture risk by FRAX. In addition, the NOF Guide recommends that FDA-approved medical therapies be considered in postmenopausal women and men age >= 50 years with a: * Hip or vertebral (clinical or morphometric) fracture * T-score of <=-2.5 at the spine or hip * Ten-year fracture probability by FRAX of >= 3% for hip fracture or >=20% for major osteoporotic fracture. People with diagnosed cases of osteoporosis or at high risk for fracture should have regular bone mineral density tests. For patients eligible for Medicare, routine testing is allowed once every 2 years. The testing frequency can be increased to one year for patients who have rapidly progressing disease, those who are receiving or discontinuing medical therapy to restore bone mass, or have additional risk factors. Dictated by: Thanh Reid M.D. on 06/15/2024 at 15:56 Approved by: Thanh Reid M.D. on 06/15/2024 at 15:57
== END ==
LOC: RAD 12:43
PROVIDERS: PCP Family Medicine; Referring Provider Neurological Surgery; Visit Provider Neurological Surgery
DX: M85.89 Other specified disorders of bone density and structure, multiple sites (principal); N95.9 Unspecified menopausal and perimenopausal disorder; M99.03 Segmental and somatic dysfunction of lumbar region
CPT/HCPCS: 77080

== ENCOUNTER → 2024-08-11 17:13 | Outpatient (CLI) | payer MEDICARE, OTHER, SELFPAY ==
--- NOTE | 2024-08-11 17:16 | DI.RAD.S_ITS ---
PROCEDURE: XR LUMBAR SPINE MIN 4V INDICATIONS: Segmental and somatic dysfunction of lumbar region TECHNIQUE: 5 views of the lumbar spine acquired, including flexion and extension views. COMPARISON: [facility], , XR LUMBAR SPINE 2-3V, 04/08/2023, 16:35. FINDINGS: Bones: 5 nonrib-bearing vertebrae are present. 7 mm anterolisthesis of L4 on L5, stable on flexion and extension. No vertebral body compression fractures. No suspicious bony lesions. Lower lumbar facet arthropathy. Soft tissues: Overlying bowel gas pattern is normal. No suspicious soft tissue calcifications. Flexion/extension: There is normal range of motion, with preserved normal alignment. IMPRESSION: 1. No acute bony abnormality. 2. 7 mm anterolisthesis of L4 on L5. No abnormal motion on flexion and extension. Dictated by: Yuval Figueredo M.D. on 08/12/2024 at 10:33 Approved by: Yuval Figueredo M.D. on 08/12/2024 at 10:34
== END ==
PROVIDERS: PCP Family Medicine; Referring Provider Neurological Surgery; Visit Provider Neurological Surgery
DX: M99.03 Segmental and somatic dysfunction of lumbar region (principal); M43.16 Spondylolisthesis, lumbar region; M47.816 Spondylosis without myelopathy or radiculopathy, lumbar region
CPT/HCPCS: 72110

== ENCOUNTER → 2024-10-06 09:33 | Outpatient (CLI) | payer MEDICARE, OTHER, SELFPAY ==
[2024-10-06 10:03] LABS: Add Manual Diff / Slide Review NO; Basophils Absolute Auto 0 /uL (0-100); Basophils Percent Auto 0.5 % (0-2); Eosinophils Absolute Auto 100 /uL (0-450); Eosinophils Percent Auto 1.5 % (2-4); Hematocrit 41.3 % (36-46); Hemoglobin 14.1 g/dL (12.0-16.0); Lymphocytes Absolute Auto 1400 /uL (1100-4500); Lymphocytes Percent Auto 27.8 % (25-40); Mean Corpuscular HGB Conc 34.2 % (30-36); Mean Corpuscular Hemoglobin 30.8 PG (26-34); Monocytes Absolute Auto 500 /uL (0-900); Monocytes Percent Auto 10.3 % (3-14); Neutrophils Absolute Auto 3100 /uL (1500-7000); Neutrophils Percent Auto 59.9 % (50-75); Platelet Count 295 X10^3/uL (150-400); Red Blood Cell Count 4.59 X10^6/uL (4.0-5.2); Red Cell Distribution Width 12.6 % (11.6-14.8); White Blood Cell Count 5.1 X10^3/uL (4.5-11.0)
[2024-10-06 10:10] LABS: Alanine Aminotransferase 26 IU/L (<35); Albumin 4.5 g/dL (3.5-5.0); Alkaline Phosphatase 68 U/L (38-126); Aspartate Aminotransferase 32 IU/L (14-36); BUN Creatinine Ratio 30.4 (6-22); Bilirubin Total 0.5 mg/dL (0.2-1.3); Blood Urea Nitrogen 21 mg/dL (7-17); Carbon Dioxide 27 mmol/L (22-32); Chloride 104 mmol/L (98-107); Cholesterol 147 mg/dL (140-199); Estimated Glomerular Filt Rate > 60 mL/min (>60); Globulin 2.3 g/dL (1.7-4.1); Glucose 88 mg/dL (80-110); HDL Cholesterol 56 mg/dL (40-60); HEMOLYSIS < 15 (0-50); LDL Cholesterol Calculated 66 mg/dL (<100); Potassium 4.6 mmol/L (3.4-5.1); Sodium 136 mmol/L (137-145); Total Protein 6.8 g/dL (6.3-8.2); Triglycerides 124 mg/dL (35-150)
[2024-10-06 10:28] LABS: Free T4, Direct Thyroxine 1.18 ng/dL (0.78-2.19)
[2024-10-06 10:41] LABS: Thyroid Stimulating Hormone 0.517 uIU/mL (0.47-4.68)
== END ==
PROVIDERS: PCP Family Medicine; Referring Provider Family Medicine; Visit Provider Family Medicine
DX: E78.2 Mixed hyperlipidemia (principal); Z00.00 Encounter for general adult medical examination without abnormal findings; E03.9 Hypothyroidism, unspecified
CPT/HCPCS: 36415; 80053; 80061; 84439; 84443; 85025

== ENCOUNTER → 2024-12-28 11:01 | Outpatient (CLI) | payer MEDICARE, OTHER, SELFPAY ==
--- NOTE | 2024-12-28 11:04 | DI.MG.S_ITS ---
MM screening mammo BI: 12/28/2024. BI-RADS: 1 CLINICAL: 69-year old female for bilateral screening mammogram. Tyrer-Cuzick lifetime risk of 11.1%. Current reported family history of breast cancer: sister. The patient is status-post reduction mammoplasty. PRIOR EXAMS 11/09/2023, 10/20/2022, 10/14/2021, 10/11/2020, 10/07/2019, 09/21/2018, 09/04/2015. MAMMOGRAPHY TECHNIQUE: 2D and 3D (tomosynthesis) digital mammographic views obtained, with additional images as needed for full coverage. Current study was also evaluated with a Computer Aided Detection (CAD) system. DENSITY C. The breasts are heterogeneously dense, which may obscure small masses. MAMMOGRAPHY FINDINGS Bilateral: No suspicious mass, asymmetry, microcalcification, or other abnormality seen. No significant change from comparison. IMPRESSION: * No evidence of malignancy. RECOMMENDATIONS Bilateral * Annual screening mammography. OVERALL ASSESSMENT CATEGORY BI-RADS-1: Negative. The [employer] recommends annual screening mammography beginning at age 40 for women with average risk of breast cancer. ELECTRONICALLY SIGNED: Albertina Villeda M.D. on 12/29/2024 at 10:50:47 AM PT Interpreting Station ID: [id number]
== END ==
PROVIDERS: PCP Family Medicine; Referring Provider Family Medicine; Visit Provider Family Medicine
DX: Z12.31 Encounter for screening mammogram for malignant neoplasm of breast (principal); Z80.3 Family history of malignant neoplasm of breast; R92.333 Mammographic heterogeneous density, bilateral breasts
CPT/HCPCS: 77063; 77067

== ENCOUNTER → 2025-01-28 09:25 | Outpatient (CLI) | payer MEDICARE, OTHER, SELFPAY ==
[2025-01-28 10:30] LABS: Influenza A - CEPHEID Flu A NEGATIVE (NEGATIVE); Influenza B - CEPHEID Flu B NEGATIVE (NEGATIVE); Respiratory Syncytial Virus Negative (Negative)
[2025-01-28 10:32] LABS: COVID-19 CEPHEID 4-PLEX PCR Negative (Negative)
== END ==
PROVIDERS: PCP Family Medicine; Visit Provider Physician Assistant Surgical
DX: R05.9 Cough, unspecified (principal)
CPT/HCPCS: 0241U

== ENCOUNTER → 2025-01-28 09:38 | Outpatient (CLI) | payer MEDICARE, OTHER, SELFPAY ==
--- NOTE | 2025-01-28 09:42 | DI.RAD.S_ITS ---
PROCEDURE: XR CHEST 2V INDICATIONS: Cough, CAMPBELL, chest congestion TECHNIQUE: 2 views of the chest were acquired. COMPARISON: None. FINDINGS: Surgical changes and devices: None. Lungs and pleura: Lungs are clear. No pleural effusions or pneumothorax. Mediastinum: Mediastinal contours are normal. Heart size is normal. Bones and chest wall: No suspicious bony abnormalities. Soft tissues appear unremarkable. IMPRESSION: No acute cardiopulmonary abnormality is seen. Approved by: Tod Coronado M.D. on 01/28/2025 at 10:45
== END ==
PROVIDERS: PCP Family Medicine; Referring Provider Family Medicine; Visit Provider Family Medicine
DX: R05.9 Cough, unspecified (principal)
CPT/HCPCS: 0241U; 71046

== ENCOUNTER → 2025-02-28 12:28 | Outpatient (CLI) | payer MEDICARE, OTHER, SELFPAY ==
--- NOTE | 2025-02-28 12:32 | DI.MRI.S_ITS ---
PROCEDURE: MR LUMBAR SPINE WO CON INDICATIONS: SPINAL STENOSIS TECHNIQUE: Noncontrast sagittal T1 spin echo and T2 fast echo, sagittal STIR, and T2 fast spin echo through the lumbar spine. In cases with scoliosis, additional coronal T2 fast spin echo may be performed. COMPARISON: [facility], CR, XR LUMBAR SPINE MIN 4V, 08/11/2024, 17:21. [facility], CT, CT LUMBAR SPINE WITHOUT CONTRAST, 05/16/2024, 16:10. [facility], MR, MR LUMBAR SPINE WO CON, 07/07/2023, 10:52. FINDINGS: Image quality: Excellent. Alignment and Curvature: There is trace retrolisthesis of L2 on L3, L3 on L4 trace anterolisthesis of L4-L5. Bone Marrow: Marrow is of normal overall signal. Moderate reactive endplate changes are present L2-3 with Schmorl's nodes at the endplates. No acute vertebral body compression fractures. Spinal Cord: Conus medullaris terminates at the L1 level. Visualized cord demonstrates normal signal and size. Paraspinous Soft Tissues: No paravertebral masses. Discs: Multilevel degenerative disc desiccation most severe at L5-S1. T12-L1: No disc bulge, spinal stenosis or foraminal narrowing. No interval change. L1-L2: No disc bulge, spinal stenosis or foraminal narrowing. No interval change. L2-L3: Mild disc bulge with [id number] spinal stenosis, slightly progressive. There is moderate bilateral, left greater than right foraminal narrowing with slight appearance of nerve root compression of the exiting right L2 nerve root , mildly progressive on the left. L3-L4: Mild disc bulge with moderate to severe spinal stenosis, unchanged. Moderate to severe bilateral foraminal narrowing facet and ligamentum hypertrophy. Mild compression the exiting L3 nerve roots bilaterally. Facet and ligamentum flavum hypertrophy. Overall, no significant interval progression. L4-L5: Mild disc bulge with severe spinal stenosis and compression. Severe bilateral foraminal narrowing, left greater right relatively stable. Significant facet and ligamentum flavum hypertrophy. L5-S1: Mild disc bulge with spinal stenosis. Moderate to severe bilateral foraminal narrowing, left greater than right with facet and ligamentum flavum hypertrophy. No significant oval change. IMPRESSION: Multilevel degenerative changes including severe foraminal narrowing and spinal stenosis as described above. Areas of interval progression are noted above. Dictated by: Gifty Hudson M.D. on 02/28/2025 at 16:26 Approved by: Gifty Hudson M.D. on 02/28/2025 at 16:33
== END ==
PROVIDERS: PCP Family Medicine; Referring Provider Neurological Surgery; Visit Provider Neurological Surgery
DX: M48.061 Spinal stenosis, lumbar region without neurogenic claudication (principal); M51.369 Other intervertebral disc degeneration, lumbar region without mention of lumbar back pain or lower extremity pain; M47.816 Spondylosis without myelopathy or radiculopathy, lumbar region; M51.379 Other intervertebral disc degeneration, lumbosacral region without mention of lumbar back pain or lower extremity pain; M48.07 Spinal stenosis, lumbosacral region
CPT/HCPCS: 72148

== ENCOUNTER → 2025-04-12 09:12 | Outpatient (CLI) | payer MEDICARE, OTHER, SELFPAY ==
--- NOTE | 2025-04-12 09:15 | DI.RAD.S_ITS ---
PROCEDURE: XR LUMBAR SPINE 2-3V INDICATIONS: LUMBAR STENOSIS TECHNIQUE: 3 views of the lumbar spine were acquired. COMPARISON: [facility], CR, XR LUMBAR SPINE MIN 4V, 08/11/2024, 17:21. FINDINGS: Bones: 5 [id number] vertebrae are present. Anterolisthesis of L4 on L5 measures 8 mm. There is otherwise normal bony alignment. Moderate to severe L2-L3 and L3- L4 and severe L5-S1 disc height loss with adjacent endplate sclerosis and mild multilevel anterior osteophytosis. Hardware within the posterior elements at the L4-5 level. No vertebral body compression fractures. No suspicious bony lesions. Soft tissues: Overlying bowel gas pattern is normal. No suspicious soft tissue calcifications. IMPRESSION: Degenerative change of the lumbar spine including anterolisthesis of L4 on L5 without evidence of acute bony abnormality. Dictated by: Allan Smith M.D. on 04/13/2025 at 0:02 Approved by: Allan Smith M.D. on 04/13/2025 at 0:08
== END ==
PROVIDERS: PCP Family Medicine; Referring Provider Neurological Surgery; Visit Provider Neurological Surgery
DX: M48.061 Spinal stenosis, lumbar region without neurogenic claudication (principal); M47.816 Spondylosis without myelopathy or radiculopathy, lumbar region; M43.16 Spondylolisthesis, lumbar region
CPT/HCPCS: 72100

== ENCOUNTER → 2025-07-23 12:46 | Outpatient (CLI) | payer MEDICARE, OTHER, SELFPAY ==
--- NOTE | 2025-07-23 12:49 | DI.RAD.S_ITS ---
PROCEDURE: XR LUMBAR SPINE MIN 4V INDICATIONS: LUMBAR PAIN TECHNIQUE: 5 views of the lumbar spine acquired, including flexion and extension views. COMPARISON: [facility], CR, XR LUMBAR SPINE 2-3V, 04/12/2025, 9:12. [facility], CR, XR LUMBAR SPINE MIN 4V, 08/11/2024, 17:21. FINDINGS: Post-surgical changes: Changes of L4-5 and L5-S1 posterior decompression and interspinous instrumented fusion. Bones: 5 nonrib-bearing vertebrae are present. Similar grade 2 anterolisthesis of L4 on L5. Similar grade 1 retrolisthesis of L2 on L3. No vertebral body compression fractures. No suspicious bony lesions. Moderate disc space narrowing at L2-3 and L3-4 with moderate facet arthrosis at the L4-5 level. Soft tissues: Overlying bowel gas pattern is normal. No suspicious soft tissue calcifications. Flexion/extension: There is decreased range of motion. No dynamic instability on flexion extension view. IMPRESSION: Decreased range of motion without dynamic instability on flexion and extension views. This may be secondary to muscle spasm. Grade 1 retrolisthesis of L2 on L3 and grade 2 anterolisthesis of L4 on L5. Moderate spondylosis at the L2-3 and the junctional L3-4 level. Dictated by: Marcus Chi M.D. on 07/23/2025 at 13:45 Approved by: Marcus Chi M.D. on 07/23/2025 at 13:47
--- NOTE | 2025-07-23 12:55 | DI.MRI.S_ITS ---
POCEDURE: MR LUMBAR SPINE WO CON INDICATIONS: RADICULOPATHY TECHNIQUE: Noncontrast sagittal T1 spin echo and T2 fast echo, sagittal STIR, and T2 fast spin echo through the lumbar spine. In cases with scoliosis, additional coronal T2 fast spin echo may be performed. COMPARISON: [facility], MR, MR LUMBAR SPINE WO CON, 07/07/2023, 10:52. [facility], MR, MR LUMBAR SPINE WO CON, 02/28/2025, 12:34. FINDINGS: Image quality: Excellent. Alignment and Curvature: There is normal bony alignment. Bone Marrow: Multilevel degenerative endplate changes. Lipid poor vertebral body hemangioma at L1 remains unchanged from 07/07/2023. Inter spinous instrumentation at L4-5 Spinal Cord: Conus medullaris terminates at the L1 level. Visualized cord demonstrates normal signal and size. T12-L1: No central or foraminal stenosis L1-L2: Hypertrophic arthropathy. No central or foraminal stenosis L2-L3: Disc bulge and arthropathy. Mild central stenosis. Moderate right and mild left foraminal stenosis L3-L4: Disc bulge and arthropathy. ligamentum flavum laxity. Moderate central stenosis. Moderate bilateral foraminal stenosis. L4-L5: Disc bulge and arthropathy. Inter spinous instrumentation. Mild central stenosis. No foraminal stenosis L5-S1: Disc bulge and arthropathy. No central or foraminal stenosis. IMPRESSION: Multilevel degenerative disc disease and arthropathy results in varying degrees of central and foraminal stenosis including moderate central stenosis L3-4 L4-5 inter spinous instrumentation Approved by: Tod Coronado M.D. on 07/23/2025 at 16:00
== END ==
PROVIDERS: Family Provider Family Medicine; PCP Family Medicine; Referring Provider Neurological Surgery; Visit Provider Neurological Surgery
DX: M51.16 Intervertebral disc disorders with radiculopathy, lumbar region (principal); M51.17 Intervertebral disc disorders with radiculopathy, lumbosacral region; M48.061 Spinal stenosis, lumbar region without neurogenic claudication; M47.26 Other spondylosis with radiculopathy, lumbar region; M43.16 Spondylolisthesis, lumbar region; Z98.1 Arthrodesis status
CPT/HCPCS: 72110; 72148

== ENCOUNTER 2025-08-08 09:45 | Outpatient (RCR) | payer MEDICARE, OTHER, SELFPAY ==
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
--- NOTE | 2025-06-14 13:51 | PT.OTN ---
Current Diagnoses Spinal stenosis, lumbar region without neurogenic claudication (06/14/25) Muscle weakness (generalized) (06/14/25) Physical Therapy Treatment Note PT OP: Lower Back/Lower Extremity Start: 06/07/25 19:56 Freq: Status: Active Protocol: Document 06/14/25 13:04 BL (Rec: 06/14/25 13:51 BL Laptop) Out-Patient Physical Therapy Visit Information Visit Information Visit Type Treatment Note Visit Start Time 13:00 Visit Stop Time 13:40 Visit Number 2 (11/13) Precautions Precautions Back surgery 03/28, Shoulder surgery 2020, Thyroid disorder. OP-PT Subjective Patient Comments Patient Comments Pt presents to the clinic this date and reports she is doing well, reports she continues to have difficulty with sitting activity this date. Reports walking and Yoga do not seem to bother her. Therapeutic Exercises Other Exercises NuStep Other Exercise Name for spinal rhythm Comments 3 min lvl 5 Neuro Re-Education Treatment Coordination Activities core Details TA activation with breathing control. Comments Pt requires heavy cueing this session for TA activation with self biofeedback at hips along with cues for full breath exhale. Trialed use of BP cuff behind back inflated to 20mmhg for visual feedback. Trialed bent knee fall outs and bird dog activity with great difficulty. Pt demos improved awareness but will continue to benefit from additional cueing at next session. Physical Therapy Assessment Goals Three Impairment Core weakness (3/5) with LBP in sitting Short Term Goal (STG Body mechanics training for ADLS ) STG Duration 07/12/25 Nursing Home Goal (LTG) Improve core strength to 4/5, with pt able to sit for > 5' without muscle fatigue. LTG Duration 08/09/25 Two Impairment Soft tissue dysfunction with pain/muscle spasms of LB with sitting Short Term Goal (STG Improve well healed scar mobility ) STG Duration 07/12/25 Nursing Home Goal (LTG) Improve lumbar soft tissue mobility with pt able to sit for 30 minutes or more without onset of ms spasms in the LB. LTG Duration 08/09/25 One Impairment Lacks appropriate self care HEP Nursing Home Goal (LTG) Pt will be independent with a HEP to improve trunk flex , thoracic mobility, and core/LE strength without onset of low back ms spasms. LTG Duration 08/09/25 Assessment Summary Assessment Pt tolerates session well, educated pt on anatomy of core musculature along with activation of TA. Pt demos difficulty with maintaining during activity however is better able to isolate TA at end of session. Will continue to benefit from strength and endurance training on future sessions. Physical Therapy Plan Frequency and Duration Frequency of 2x/Week Treatment Duration of 8 treatment (weeks) Plan of Care Start 06/12/25 Date Plan of Care End 08/09/25 Date Next Visit Focus/Plan Next Note Type Treatment Note Next Visit Plan L/S Rehab for s/p L4-L5 laminectomy with Coflex stabilization device for stenosis and spondylolisthesis , caution and care to avoid extension and excessive flexion. Pt will need to be progressed slowly and cautiously due to her poor core strength, lack of core stability with LE movement and ongoing chronic LB ms spasms/pain with sitting. Next: Review log roll transfer. Pt education in hip hinging and proper sit/stand posture and body mechanics for ADLs. POC: Pt education, Manual therapy (scar mob, k-tape on scar or L/S paraspinals for ms relaxation or stabilization), Therapeutic Exercises ( core/neutral spine strengthening, avoid L/S ext, improve T/S mob while keeping core in neutral), Therapeutic Activities (body mechanics for ADLs, transfers), neuro-guille for core stabilization.
--- NOTE | 2025-06-19 13:53 | PT.OTN ---
Current Diagnoses Spinal stenosis, lumbar region without neurogenic claudication (06/19/25) Muscle weakness (generalized) (06/19/25) Physical Therapy Treatment Note PT OP: Lower Back/Lower Extremity Start: 06/07/25 19:56 Freq: Status: Active Protocol: Document 06/19/25 13:00 SP (Rec: 06/19/25 13:54 SP [id number]) Out-Patient Physical Therapy Visit Information Visit Information Visit Type Treatment Note Visit Note ANIYA Berg assisted TELEGRAPH EQUIPMENT MAINTAINER with instructing ther ex and body mechanics with patient permission while under direct supervision and instruction of TELEGRAPH EQUIPMENT MAINTAINER Dayna. Visit Start Time 13:00 Visit Stop Time 13:53 Visit Number 3(12/11) Number of TELEGRAPH EQUIPMENT MAINTAINER Visits 1 Progress Note Due 07/11/25 Precautions Precautions Back surgery 03/28 (s/p L4-L5 laminectomy with Coflex stabilization device for stenosis and spondylolisthesis ), Shoulder surgery 2020, Thyroid disorder. OP-PT Subjective Patient Comments Patient Comments Pt reports has been doing her abdominal draw in HEP and newly added exercises given by Fran PT. She is frustrated not getting in for appts as much as should be with decreased appt availability but is please with PT visit learned these few visits. Therapeutic Exercises Supine Exercises TA Heel Slide Supine Exercise Name trialed in PT Reps/Minutes 5 reps each side- still little irritation in LB so Hold for now 06/19/25 Comments Extra time education on TA and PPT with breath, not over recruit upper body TA KFO Supine Exercise Name added to HEP wtih HO Side bilateral Reps/Minutes 10 reps each LE alternating Comments Extra time PPT and TA draw in without LB irritation TA marching Supine Exercise Name added to HEP with HO Side bilateral Reps/Minutes 10 reps each LE alternating Comments Extra time PPT and TA draw in without LB irritation TA Training Supine Exercise Name added to HEP with HO Resistance hooklying, hands over lower abdominals Reps/Minutes 5' Comments Extra time education on TA and PPT with breath, not over recruit upper body Prone Exercises BRIAN Prone Exercise Name Small range lift (20 deg's) for thoracic ext.- mistake supine at eval Equipment Used Not performed, verbal review- trial performance next tx Reps/Minutes 2' Comments No c/o pain, lumbar spasm afterwards. Standing Exercises Resisted Rows Standing Exercise added to HEP with HO Name Side bilateral Resistance TB #2 teal green Reps/Minutes 10 reps Comments cued for spinal alignment and TA draw in with proper form- no pain Therapeutic Activity Therapeutic Activity Log Roll Technique Name sit<>supine Reps/Minutes 3 reps Comments education of TA and spinal alignment log roll and trunk righting to sitting with upper body support at this time to decrease LB irritation and core strengthening support. Self-Care/Home Management Treatment Education Patient Education Body Mechanics,Joint Protection,Pain Management,Posture ,Safety Other Education Much time education on anatomy of spine and how TA and breath how relates to support low back and spinal alignment and stabilization. Extra time proper form for core progression Ex. Physical Therapy Assessment Goals Three Impairment Core weakness (3/5) with LBP in sitting Short Term Goal (STG Body mechanics training for ADLS ) STG Duration 07/12/25 Skilled Nursing Goal (LTG) Improve core strength to 4/5, with pt able to sit for > 5' without muscle fatigue. LTG Duration 08/09/25 Two Impairment Soft tissue dysfunction with pain/muscle spasms of LB with sitting Short Term Goal (STG Improve well healed scar mobility ) STG Duration 07/12/25 Firefighting Equipment Specialist Goal (LTG) Improve lumbar soft tissue mobility with pt able to sit for 30 minutes or more without onset of ms spasms in the LB. LTG Duration 08/09/25 One Impairment Lacks appropriate self care HEP Firefighting Equipment Specialist Goal (LTG) Pt will be independent with a HEP to improve trunk flex , thoracic mobility, and core/LE strength without onset of low back ms spasms. 06/19/25: added TA trng and TA KFO, TA marching, Resisted rows. LTG Duration 08/09/25 updated 06/19/25 Assessment Summary Assessment Pt improved TA and PPT neutral spine with pre and during ther ex with education and tactile cues provided by TELEGRAPH EQUIPMENT MAINTAINER. Much education throughout tx for slow gentle breath wtih TA support during ther ex needed and not over recruit upper body engagement, tends to guard shoulder elevation or slight anterior and posterior upper body over recruitment. Pt reports low back feels more supported with ther ex today but little sore. Continued education before left not to over recruit TA for low back support, better understanding. Physical Therapy Plan Frequency and Duration Frequency of 2x/Week Treatment Duration of 8 treatment (weeks) Plan of Care Start 06/12/25 Date Plan of Care End 08/09/25 Date Therapeutic Interventions Therapeutic Home Exercise Program,Manual Therapy,Neuromuscular Re- Interventions education,Self-Care/Home Management,Soft Tissue Mobilization,Taping,Therapeutic Activities,Therapeutic Exercises Modalities Cold Pack/Ice Massage Next Visit Focus/Plan Next Note Type Treatment Note Next Visit Plan REview: hooklying core HEP with breath and Spinal alignment. L/S Rehab for s/p L4-L5 laminectomy with Coflex stabilization device for stenosis and spondylolisthesis , caution and care to avoid extension and excessive flexion. Pt will need to be progressed slowly and cautiously due to her poor core strength, lack of core stability with LE movement and ongoing chronic LB ms spasms/pain with sitting. Next: Review log roll transfer. Pt education in hip hinging and proper sit/stand posture and body mechanics for ADLs. POC: Pt education, Manual therapy (scar mob, k-tape on scar or L/S paraspinals for ms relaxation or stabilization), Therapeutic Exercises ( core/neutral spine strengthening, avoid L/S ext, improve T/S mob while keeping core in neutral), Therapeutic Activities (body mechanics for ADLs, transfers), neuro-guille for core stabilization.
--- NOTE | 2025-06-21 12:19 | PT.OTN ---
Current Diagnoses Spinal stenosis, lumbar region without neurogenic claudication (06/21/25) Muscle weakness (generalized) (06/21/25) Physical Therapy Treatment Note PT OP: Lower Back/Lower Extremity Start: 06/07/25 19:56 Freq: Status: Active Protocol: Document 06/21/25 11:35 SP (Rec: 06/21/25 12:41 SP [id number]) Out-Patient Physical Therapy Visit Information Visit Information Visit Type Treatment Note Visit Note SPTA Morena assisted ZIGZAG APPLIQUER as needed while under direct supervision and instruction of ZIGZAG APPLIQUER and with pt permission during ther ex. Visit Start Time 11:35 Visit Stop Time 12:19 Visit Number 4(01/11) Number of ZIGZAG APPLIQUER Visits 2 Progress Note Due 07/11/25 Precautions Precautions Back surgery 03/28 (s/p L4-L5 laminectomy with Coflex stabilization device for stenosis and spondylolisthesis ), Shoulder surgery 2020, Thyroid disorder. 06/21/25: Pt was told by doctor, only restriction/ caution exessive flexion downward dog. OP-PT Subjective Patient Comments Patient Comments Pt reports took a TRX class and did a forward trunk lean anchored behind with no pain, I felt great. Therapeutic Exercises Supine Exercises TA KFO Supine Exercise Name Reviewed Side bilateral Resistance AROM> TB #2 at thighs Equipment Used BP cuff initially then rolled towel under LS maintain PPT/neutral pelvis Reps/Minutes 10 reps each LE alternating Comments Extra time PPT and TA draw in without LB irritation, slow pacing control TA marching Supine Exercise Name reviewed Side bilateral Reps/Minutes 10 reps each LE alternating Comments Extra time PPT and TA draw in without LB irritation, cued table top LEs TA Training Supine Exercise Name reviewed Resistance hooklying, hands over lower abdominals Equipment Used rolled towel under LS Reps/Minutes 10 SH x10 prep other HEP Comments cued TA and PPT with breath, post scap weighted into table Prone Exercises BRIAN Prone Exercise Name Small range lift (20 deg's) for thoracic ex- DC Equipment Used pillow under pelvis for support NS Reps/Minutes 5 Comments to challenging maintain NUCLEAR MEDICINE MEDICAL DIRECTOR LS and slight TS ext on forearms Other Exercises quadruped Other Exercise Name trialed UE & LE ext- continue in PT Side bilateral Comments cued PPT LS and chin tuck w/ CS ext neutral, little challenge maintain Self-Care/Home Management Treatment Education Patient Education Body Mechanics,Joint Protection,Pain Management,Posture ,Safety Other Education Ed PPT and TA/core stabilization during TRX class, suggested not performing full pec stretch standing anchored behind her, think might be challenging maintain PPT/ NS. Discussed with patient needs to modify yoga and TRX class activities when needed for neutral spine and TA support for safety. WIll continue to work on these for safety during PT as well. Physical Therapy Assessment Goals Three Impairment Core weakness (3/5) with LBP in sitting Short Term Goal (STG Body mechanics training for ADLS ) STG Duration 07/12/25 Geotechnical Engineer Goal (LTG) Improve core strength to 4/5, with pt able to sit for > 5' without muscle fatigue. LTG Duration 08/09/25 Two Impairment Soft tissue dysfunction with pain/muscle spasms of LB with sitting Short Term Goal (STG Improve well healed scar mobility ) STG Duration 07/12/25 [facility]ent[facility] Goal (LTG) Improve lumbar soft tissue mobility with pt able to sit for 30 minutes or more without onset of ms spasms in the LB. LTG Duration 08/09/25 One Impairment Lacks appropriate self care HEP Geotechnical Engineer Goal (LTG) Pt will be independent with a HEP to improve trunk flex , thoracic mobility, and core/LE strength without onset of low back ms spasms. 06/19/25: added TA trng and TA KFO, TA marching, Resisted rows. LTG Duration 08/09/25 updated 06/19/25 Assessment Summary Assessment Pt needs towel roll behind back for self feedback maintain PPT for spinal and TA engagement support during baseline core hooklying HEP. Trialed bird dog/ quadruped BUE/ BLEs ext, challenged maintain NS but no pain reported. Discussed needs to modify yoga and TRX class activities when needed for neutral spine and TA support for safety. She reports doctor stated only restriction/caution exessive flexion downward dog. Physical Therapy Plan Frequency and Duration Frequency of 2x/Week Treatment Duration of 8 treatment (weeks) Plan of Care Start 06/12/25 Date Plan of Care End 08/09/25 Date Therapeutic Interventions Therapeutic Home Exercise Program,Manual Therapy,Neuromuscular Re- Interventions education,Self-Care/Home Management,Soft Tissue Mobilization,Taping,Therapeutic Activities,Therapeutic Exercises Modalities Cold Pack/Ice Massage Next Visit Focus/Plan Next Note Type Treatment Note Next Visit Plan Continue review core HEP hooklying with breath and Spinal alignment, not overrecruit upper body allow scap weight into floor. L/S Rehab for s/p L4-L5 laminectomy with Coflex stabilization device for stenosis and spondylolisthesis , caution and care to avoid extension and excessive flexion. Pt will need to be progressed slowly and cautiously due to her poor core strength, lack of core stability with LE movement and ongoing chronic LB ms spasms/pain with sitting. Next: Review log roll transfer. Pt education in hip hinging and proper sit/stand posture and body mechanics for ADLs. POC: Pt education, Manual therapy (scar mob, k-tape on scar or L/S paraspinals for ms relaxation or stabilization), Therapeutic Exercises ( core/neutral spine strengthening, avoid L/S ext, improve T/S mob while keeping core in neutral), Therapeutic Activities (body mechanics for ADLs, transfers), neuro-guille for core stabilization.
[2025-06-25 14:30] VITALS: BP 102/75; PULSE 78
--- NOTE | 2025-06-25 16:02 | PT.OTN ---
Current Diagnoses Spinal stenosis, lumbar region without neurogenic claudication (06/25/25) Muscle weakness (generalized) (06/25/25) Physical Therapy Treatment Note PT OP: Lower Back/Lower Extremity Start: 06/07/25 19:56 Freq: Status: Active Protocol: Document 06/25/25 14:30 PD (Rec: 06/25/25 14:25 PD [id number]) Out-Patient Physical Therapy Visit Information Visit Information Visit Type Treatment Note Visit Note ANIYA Berg led treatment with LINEN ATTENDANT while under direct supervision and instruction of LINEN ATTENDANT Dayna and with pt permission. Visit Start Time 14:30 Visit Stop Time 15:12 Visit Number 5(02/10) Number of LINEN ATTENDANT Visits 3 Progress Note Due 07/11/25 Precautions Precautions Back surgery 03/28 (s/p L4-L5 laminectomy with Coflex stabilization device for stenosis and spondylolisthesis ), Shoulder surgery 2020, Thyroid disorder. 06/21/25: Pt was told by doctor, only restriction/ caution exessive flexion downward dog. Vital Signs Blood Pressure LUE Blood Pressure (90/ 102/75 60-120/80 mmHg) Blood Pressure Manual Cuff,Left Upper Extremity Source Pulse LUE Pulse at Rest (bpm) 78 Pulse Assessment Pulse Ox/Monitor Method Comments Vital Signs Comments LUE seated rest at arrival: BP 102/75, HR 78, SaO2 98% RA; 2nd 110/70 1 min seated OP-PT Subjective Patient Comments Patient Comments Pt has been very active since last visit. Today has done yoga and TRX class. Walking 3 miles per day, usually on level terrain, sometimes on beach, over the weekend and most days. Still taking 600 mg IB twice per day, starts weening herself off tomorrow. Sitting is better, able to sit for 20-30 minutes without pain. Has been doing HEP: supine marching , KFOs, and TA activation. Pt has no pain right now, she feels very good at start of tx. Pt requested BP check prior to ther ex. On questioning about functional activities, gardening, ground to stand movement, pt reports that squats are difficult due to knee pn and that using a hip hinge strategy for squats is also difficult. When gardening she gets on hands and knees to move around. Gym Equipment Cable Column (Body Solid) Eccentric squats Details TRX type squat Resistance Eccentric, only cable blocked heavy wt for stationary strap assimulation Reps/Time x 5- good mechanics no pain Therapeutic Exercises Supine Exercises TA KFO Supine Exercise Name Reviewed Side bilateral Resistance AROM Reps/Minutes 10 reps each LE alternating Comments T and V cues for TA activation, lumbar spine to table, R side difficult. TA Training Supine Exercise Name reviewed Resistance hooklying, hands over lower abdominals Reps/Minutes 10 Comments cued TA and PPT with breath, post scap weighted into table Sitting Exercises Hip Abduction Sitting Exercise Hip Abduction Name Side bilateral Resistance L3 Band Reps/Minutes 2 x 10 Comments Pt reported increase in R side discomfort at end. Added to HEP. Other Exercises REsited walking Other Exercise Name Resisted walking fw, sideways, backwards Side bilateral Resistance L3 band at ankles Reps/Minutes 5-15' Comments Triggers LBP on R side after 3-5 steps, trialed, supine ex better. quadruped Other Exercise Name UE & LR ext Side bilateral Reps/Minutes x 5 Comments Use dowel to cue for posture in QP, pt struggles to maintain TA activation. Therapeutic Activity Therapeutic Activity Gardening Activity Name Stand to ground and back to endocrinology specialist gardening type movements Reps/Minutes x 1 Comments Pt demonstrated method of getting to ground to garden. Pt prefers QP position, practiced reaching and lifting 2# wt up to stand to simulate gardening. Pt struggles to reach standing again without R side discomfort, uses extreme flexion to get to standing. We discussed deep squatting to keep the back straight but pt unable to deep squat, even with a hip hinge. Knee pn and strength appear to limit squatting. Manual Therapy Treatment Consent Patient gave verbal Yes consent for manual treatment Manual Techniques MET Type Isometric hip flexion/extension, add, abd Body Location LE Body Position Hooklying Reps/Duration 3 x hold for 5 each position Comments Pt reported some SI jt irritation, iliac crest appeared level but trialed MET for pn relief. Pt reported felt good. Added to HEP with HO if pt wants to try at home for relief of pn. Physical Therapy Assessment Goals Three Impairment Core weakness (3/5) with LBP in sitting Short Term Goal (STG Body mechanics training for ADLS ) STG Duration 07/12/25 Group Home Goal (LTG) Improve core strength to 4/5, with pt able to sit for > 5' without muscle fatigue. LTG Duration 08/09/25 Two Impairment Soft tissue dysfunction with pain/muscle spasms of LB with sitting Short Term Goal (STG Improve well healed scar mobility ) STG Duration 07/12/25 Leather Cartridge Belt Maker Goal (LTG) Improve lumbar soft tissue mobility with pt able to sit for 30 minutes or more without onset of ms spasms in the LB. 06/25/25: Pt reports able to side comfortably for 20-30 min now. LTG Duration 08/09/25, updated 06/25/25 One Impairment Lacks appropriate self care HEP Leather Cartridge Belt Maker Goal (LTG) Pt will be independent with a HEP to improve trunk flex , thoracic mobility, and core/LE strength without onset of low back ms spasms. 06/19/25: added TA trng and TA KFO, TA marching, Resisted rows. 06/25/25: Pt completing 3 HEP supine ex routinely, TA KFO, marching, and TA activation. LTG Duration 08/09/25 updated 06/25/25 Assessment Summary Assessment Pt has some discomfort in R SI area after tx today, it appeared to start with R side KFO in supine, trialed the MET exercises for the SI joint to see if that would ease the discomfort. Added to HEP if it is helpful to relieve R side discomfort. Also added seated hip abduction with L3 band at knees to HEP to address possible weakness in glut med evident from hinged squatting limitation during gardening activity. Pt will focus on supine exercises and add others if they are pain free. Pt still struggles to activate TA while using good breathing techniques and doing other exercises. Used cable equipment with no additional resistance to try to make like a TRX for an assisted squat. This seems to work to allow deeper squat activity w/o pn. Supine activities are still the most comfortable for the pt while activating the TA. Physical Therapy Plan Frequency and Duration Frequency of 2x/Week Treatment Duration of 8 treatment (weeks) Plan of Care Start 06/12/25 Date Plan of Care End 08/09/25 Date Next Visit Focus/Plan Next Note Type Treatment Note Next Visit Plan Continue review core HEP hooklying with breath and Spinal alignment, not overrecruit upper body allow scap weight into floor. L/S Rehab for s/p L4-L5 laminectomy with Coflex stabilization device for stenosis and spondylolisthesis , caution and care to avoid extension and excessive flexion. Pt will need to be progressed slowly and cautiously due to her poor core strength, lack of core stability with LE movement and ongoing chronic LB ms spasms/pain with sitting. Next: Review HEP and R side SI irritation status, knee fall outs, and seated hip abd. Lower resistance if L3 band painful. Continue to work on TA activation while advancing activities within a pain free range.
--- NOTE | 2025-07-11 13:05 | PT.OPPN ---
Current Diagnoses Spinal stenosis, lumbar region without neurogenic claudication (07/11/25) Muscle weakness (generalized) (07/11/25) Physical Therapy Progress Note PT OP: Lower Back/Lower Extremity Start: 06/07/25 19:56 Freq: Status: Active Protocol: Document 07/11/25 07:24 MAXX (Rec: 07/11/25 12:16 MAXX [id number]) Out-Patient Physical Therapy Visit Information Visit Information Visit Type Progress Note Visit Start Time 08:15 Visit Stop Time 09:00 Visit Number 6(03/13) Number of POOLROOM/POOLHALL MANAGER Visits 0 Progress Note Due 08/10/25 Precautions Precautions Back surgery 03/28 (s/p L4-L5 laminectomy with Coflex stabilization device for stenosis and spondylolisthesis ), Shoulder surgery 2020, Thyroid disorder. 06/21/25: Pt was told by doctor, only restriction/ caution exessive flexion downward dog. OP-PT Subjective Patient Comments Patient Comments L4-L5 laminectomy with coflex stabilization device. She reports that prior to the surgery, she was having high levels of nerve pain down her R LE. She reports that for the first month post-surgery, she had less pain in her back and leg. Over the last two months, the pain returned but the symptoms are more localized to her low back and she reports she has started to feel some of her nerve pain down her leg. She took ibuprofen for one month and reports that reduced the pain levels but when she stopped taking it her pain returned. She reports she has been doing a yoga class and TRX class which was feeling good for her back but she stopped the TRX class since she started to feel her back pain again. She has an appointment scheduled with her surgery for 08/02/2025. Current pain level: 2/10 Pain at worst: 6/10 - after sitting for extended period Pain at best: 2/10 Aggravating: Sitting for any length of time, Alleviating: Seated flexion, supine knees to chest Functional deficits (current): twisting, sitting for any period (20 minutes) Lumbar Spine Range of Motion Lumbar Spine Active Comments Repeated movement testing: Flexion: Peripheralized symptoms Extension: Centralized symptoms Movement screen: Flexion: WFL Extension: WFL R side bending: WFL L side bending: WFL, pain reproduction R rotation: WFL L rotation: WFL Squat: reduced anterior knee translation Hinge: WFL Hip Goniometric Range of Motion Hip Measured in Degrees Right Passive Internal Rotation 40 External Rotation 50 Comments Pain reproduction with piriformis muscle stretch bias with hip ER (hip flexion and ER) Therapeutic Exercises Sitting Exercises Seated sciatic nerve glide Reps/Minutes x20 Piriformis stretch Reps/Minutes x20 Seated lumbar extension Reps/Minutes 2x10 Physical Therapy Assessment Goals Four Impairment Sitting tolerance Short Term Goal (STG Patient will report sitting for >25 minutes at a time ) with no more than a 1 point increase in pain levels. (added 07/11/2025) STG Duration 3 weeks Retirement Goal (LTG) Patient will report sitting for >35 minutes at a time with no more than a 1 point increase in pain levels. (added 07/11/2025) LTG Duration 6 week Three Impairment Core weakness (3/5) with LBP in sitting Short Term Goal (STG Body mechanics training for ADLS ) STG Duration 07/12/25 Retirement Goal (LTG) Improve core strength to 4/5, with pt able to sit for > 5' without muscle fatigue. LTG Duration 08/09/25 Two Impairment Soft tissue dysfunction with pain/muscle spasms of LB with sitting Short Term Goal (STG Improve well healed scar mobility ) STG Duration 07/12/25 Grade Teacher Goal (LTG) Improve lumbar soft tissue mobility with pt able to sit for 30 minutes or more without onset of ms spasms in the LB. 06/25/25: Pt reports able to side comfortably for 20-30 min now. LTG Duration 08/09/25, updated 06/25/25 One Impairment Lacks appropriate self care HEP Retirement Goal (LTG) Pt will be independent with a HEP to improve trunk flex , thoracic mobility, and core/LE strength without onset of low back ms spasms. 06/19/25: added TA trng and TA KFO, TA marching, Resisted rows. 06/25/25: Pt completing 3 HEP supine ex routinely, TA KFO, marching, and TA activation. LTG Duration 08/09/25 updated 06/25/25 Assessment Summary Assessment Patient presenting to PT after 5 PT visits s/p L4-L5 laminectomy with Coflex stabilization in late March 2025 . Patient continues to have symptoms in her back and down her legs when sitting that has resulting in her self-limiting her activity levels (see subjective section). Further investigation revealed peripheralization of symptoms with flexion repeated movement testing and centralization with extension repeated movements indicating extension movement preference. Patient will continue to benefit from PT to manage symptoms, and guide graded return to activity. Physical Therapy Plan Frequency and Duration Frequency of 2x/Week Treatment Duration of 8 treatment (weeks) Plan of Care Start 06/12/25 Date Plan of Care End 08/09/25 Date Next Visit Focus/Plan Next Note Type Treatment Note Next Visit Plan Add cat cows, posterior chain and lumbar strengthening in symptom-free ranges, core strengthening.
--- NOTE | 2025-07-17 10:00 | PT.OTN ---
Current Diagnoses Spinal stenosis, lumbar region without neurogenic claudication (07/17/25) Muscle weakness (generalized) (07/17/25) Physical Therapy Treatment Note PT OP: Lower Back/Lower Extremity Start: 06/07/25 19:56 Freq: Status: Active Protocol: Document 07/17/25 08:14 MAXX (Rec: 07/17/25 09:56 MAXX [id number]) Out-Patient Physical Therapy Visit Information Visit Information Visit Type Treatment Note Visit Start Time 09:02 Visit Stop Time 09:42 Visit Number 6(04/12) Number of SPICE CLEANER Visits 0 Progress Note Due 08/10/25 Precautions Precautions Back surgery 03/28 (s/p L4-L5 laminectomy with Coflex stabilization device for stenosis and spondylolisthesis ), Shoulder surgery 2020, Thyroid disorder. 06/21/25: Pt was told by doctor, only restriction/ caution exessive flexion downward dog. OP-PT Subjective Patient Comments Patient Comments Patient reports she has been doing her exercises and her pain has overall been better. She went dancing on Wednesday and reports her back was not bothering her at all after which surprised her. She reports her current pain level is a 2/10. Therapeutic Exercises Sitting Exercises Sit to stand Resistance 20# Reps/Minutes 2x10 Seated hip hinge Reps/Minutes x20 Seated band hip abduction Reps/Minutes 3x10 Comments Level 2 band Seated sciatic nerve glide Reps/Minutes 2x15 Comments Resting foot on ground due to R knee pain Piriformis stretch Reps/Minutes 3x20 each direction Seated lumbar extension Reps/Minutes 2x10 Physical Therapy Assessment Goals Four Impairment Sitting tolerance Short Term Goal (STG Patient will report sitting for >25 minutes at a time ) with no more than a 1 point increase in pain levels. (added 07/11/2025) STG Duration 3 weeks Deep Well Contractor Goal (LTG) Patient will report sitting for >35 minutes at a time with no more than a 1 point increase in pain levels. (added 07/11/2025) LTG Duration 6 week Three Impairment Core weakness (3/5) with LBP in sitting Short Term Goal (STG Body mechanics training for ADLS ) STG Duration 07/12/25 Retirement Goal (LTG) Improve core strength to 4/5, with pt able to sit for > 5' without muscle fatigue. LTG Duration 08/09/25 Two Impairment Soft tissue dysfunction with pain/muscle spasms of LB with sitting Short Term Goal (STG Improve well healed scar mobility ) STG Duration 07/12/25 Retirement Goal (LTG) Improve lumbar soft tissue mobility with pt able to sit for 30 minutes or more without onset of ms spasms in the LB. 06/25/25: Pt reports able to side comfortably for 20-30 min now. LTG Duration 08/09/25, updated 06/25/25 One Impairment Lacks appropriate self care HEP Deep Well Contractor Goal (LTG) Pt will be independent with a HEP to improve trunk flex , thoracic mobility, and core/LE strength without onset of low back ms spasms. 06/19/25: added TA trng and TA KFO, TA marching, Resisted rows. 06/25/25: Pt completing 3 HEP supine ex routinely, TA KFO, marching, and TA activation. LTG Duration 08/09/25 updated 06/25/25 Assessment Summary Assessment Treatment focused on lumbar and posterior hip mobility and gentle strengthening. Patient tolerated treatment well with no lasting increases in pain levels. Plan next session to follow up on response to today's session and update HEP pending positive response. Physical Therapy Plan Frequency and Duration Frequency of 2x/Week Treatment Duration of 8 treatment (weeks) Plan of Care Start 06/12/25 Date Plan of Care End 08/09/25 Date Next Visit Focus/Plan Next Note Type Treatment Note Next Visit Plan Add cat cows, posterior chain and lumbar strengthening in symptom-free ranges, core strengthening.
--- NOTE | 2025-07-19 15:39 | PT.OTN ---
Current Diagnoses Spinal stenosis, lumbar region without neurogenic claudication (07/19/25) Muscle weakness (generalized) (07/19/25) Physical Therapy Treatment Note PT OP: Lower Back/Lower Extremity Start: 06/07/25 19:56 Freq: Status: Active Protocol: Document 07/19/25 14:42 JZ (Rec: 07/19/25 15:38 JZ [id number]) Out-Patient Physical Therapy Visit Information Visit Information Visit Type Treatment Note Visit Start Time 14:42 Visit Stop Time 15:20 Visit Number 7(05/13) Number of OPTIONS ADVISOR Visits 0 Progress Note Due 08/10/25 Precautions Precautions Back surgery 03/28 (s/p L4-L5 laminectomy with Coflex stabilization device for stenosis and spondylolisthesis ), Shoulder surgery 2020, Thyroid disorder. 06/21/25: Pt was told by doctor, only restriction/ caution exessive flexion downward dog. OP-PT Subjective Patient Comments Patient Comments Patient reports her current pain level is a 3/10. She reports she did TRX work yesterday and it felt very good in the moment. She reports she struggled to fall asleep yesterday however and woke up in the night with some pain. Therapeutic Exercises Prone Exercises Cat cow Resistance x10 Sitting Exercises Supine lumbar rotation Reps/Minutes x5 each side Comments Leg across body Sit to stand Resistance 20# Reps/Minutes 2x10 Seated hip hinge Reps/Minutes x20 Seated band hip abduction Reps/Minutes 3x10 Comments Level 2 band Seated sciatic nerve glide Reps/Minutes 2x15 Comments Resting foot on stool due to R knee pain Piriformis stretch Reps/Minutes 3x20 each direction Seated lumbar extension Reps/Minutes 2x10 Standing Exercises Standing hip hinge Reps/Minutes 2x10 Comments cues for posterior hip translation Physical Therapy Assessment Goals Four Impairment Sitting tolerance Short Term Goal (STG Patient will report sitting for >25 minutes at a time ) with no more than a 1 point increase in pain levels. (added 07/11/2025) STG Duration 3 weeks Movement Therapist Goal (LTG) Patient will report sitting for >35 minutes at a time with no more than a 1 point increase in pain levels. (added 07/11/2025) LTG Duration 6 week Three Impairment Core weakness (3/5) with LBP in sitting Short Term Goal (STG Body mechanics training for ADLS ) STG Duration 07/12/25 Movement Therapist Goal (LTG) Improve core strength to 4/5, with pt able to sit for > 5' without muscle fatigue. LTG Duration 08/09/25 Two Impairment Soft tissue dysfunction with pain/muscle spasms of LB with sitting Short Term Goal (STG Improve well healed scar mobility ) STG Duration 07/12/25 Movement Therapist Goal (LTG) Improve lumbar soft tissue mobility with pt able to sit for 30 minutes or more without onset of ms spasms in the LB. 06/25/25: Pt reports able to side comfortably for 20-30 min now. LTG Duration 08/09/25, updated 06/25/25 One Impairment Lacks appropriate self care HEP Longterm Goal (LTG) Pt will be independent with a HEP to improve trunk flex , thoracic mobility, and core/LE strength without onset of low back ms spasms. 06/19/25: added TA trng and TA KFO, TA marching, Resisted rows. 06/25/25: Pt completing 3 HEP supine ex routinely, TA KFO, marching, and TA activation. LTG Duration 08/09/25 updated 06/25/25 Assessment Summary Assessment Treatment focused on progressing lumbar mobility and motor control with gross movement patterns. Patient tolerated treatment well with reported reductions in pain levels post-treatment. Plan next session to follow up on home exercises and pain levels over the weekend and continue with plan of care. Physical Therapy Plan Frequency and Duration Frequency of 2x/Week Treatment Duration of 8 treatment (weeks) Plan of Care Start 06/12/25 Date Plan of Care End 08/09/25 Date Next Visit Focus/Plan Next Visit Plan Follow up on HEP and response to today's session. Trial gentle loading with hip hinge movements. Current HEP: - Cat cows - Piriformis stretch seated (up and down) - Supine sciatic nerve glide - Seated sciatic nerve glide - Seated lumbar extension
--- NOTE | 2025-07-19 15:54 | PT.OPPN ---
Current Diagnoses Spinal stenosis, lumbar region without neurogenic claudication (07/19/25) Muscle weakness (generalized) (07/19/25) Physical Therapy Progress Note PT OP: Lower Back/Lower Extremity Start: 06/07/25 19:56 Freq: Status: Active Protocol: Document 07/19/25 14:42 JZ (Rec: 07/19/25 15:38 JZ [id number]) Out-Patient Physical Therapy Visit Information Visit Information Visit Type Treatment Note Visit Start Time 14:42 Visit Stop Time 15:20 Visit Number 7(05/13) Number of CARD CUTTER HELPER Visits 0 Progress Note Due 08/10/25 Precautions Precautions Back surgery 03/28 (s/p L4-L5 laminectomy with Coflex stabilization device for stenosis and spondylolisthesis ), Shoulder surgery 2020, Thyroid disorder. 06/21/25: Pt was told by doctor, only restriction/ caution exessive flexion downward dog. OP-PT Subjective Patient Comments Patient Comments Patient reports her current pain level is a 3/10. She reports she did TRX work yesterday and it felt very good in the moment. She reports she struggled to fall asleep yesterday however and woke up in the night with some pain. Therapeutic Exercises Prone Exercises Cat cow Resistance x10 Sitting Exercises Supine lumbar rotation Reps/Minutes x5 each side Comments Leg across body Sit to stand Resistance 20# Reps/Minutes 2x10 Seated hip hinge Reps/Minutes x20 Seated band hip abduction Reps/Minutes 3x10 Comments Level 2 band Seated sciatic nerve glide Reps/Minutes 2x15 Comments Resting foot on stool due to R knee pain Piriformis stretch Reps/Minutes 3x20 each direction Seated lumbar extension Reps/Minutes 2x10 Standing Exercises Standing hip hinge Reps/Minutes 2x10 Comments cues for posterior hip translation Physical Therapy Assessment Goals Four Impairment Sitting tolerance Short Term Goal (STG Patient will report sitting for >25 minutes at a time ) with no more than a 1 point increase in pain levels. (added 07/11/2025) STG Duration 3 weeks Fpc Goal (LTG) Patient will report sitting for >35 minutes at a time with no more than a 1 point increase in pain levels. (added 07/11/2025) LTG Duration 6 week Three Impairment Core weakness (3/5) with LBP in sitting Short Term Goal (STG Body mechanics training for ADLS ) STG Duration 07/12/25 Pickling Drum Operator Goal (LTG) Improve core strength to 4/5, with pt able to sit for > 5' without muscle fatigue. LTG Duration 08/09/25 Two Impairment Soft tissue dysfunction with pain/muscle spasms of LB with sitting Short Term Goal (STG Improve well healed scar mobility ) STG Duration 07/12/25 Pickling Drum Operator Goal (LTG) Improve lumbar soft tissue mobility with pt able to sit for 30 minutes or more without onset of ms spasms in the LB. 06/25/25: Pt reports able to side comfortably for 20-30 min now. LTG Duration 08/09/25, updated 06/25/25 One Impairment Lacks appropriate self care HEP Fpc Goal (LTG) Pt will be independent with a HEP to improve trunk flex , thoracic mobility, and core/LE strength without onset of low back ms spasms. 06/19/25: added TA trng and TA KFO, TA marching, Resisted rows. 06/25/25: Pt completing 3 HEP supine ex routinely, TA KFO, marching, and TA activation. LTG Duration 08/09/25 updated 06/25/25 Assessment Summary Assessment Treatment focused on progressing lumbar mobility and motor control with gross movement patterns. Patient tolerated treatment well with reported reductions in pain levels post-treatment. Plan next session to follow up on home exercises and pain levels over the weekend and continue with plan of care. Physical Therapy Plan Frequency and Duration Frequency of 2x/Week Treatment Duration of 8 treatment (weeks) Plan of Care Start 06/12/25 Date Plan of Care End 08/09/25 Date Next Visit Focus/Plan Next Visit Plan Follow up on HEP and response to today's session. Trial gentle loading with hip hinge movements. Current HEP: - Cat cows - Piriformis stretch seated (up and down) - Supine sciatic nerve glide - Seated sciatic nerve glide - Seated lumbar extension
--- NOTE | 2025-07-31 10:32 | PT.OTN ---
Current Diagnoses Spinal stenosis, lumbar region without neurogenic claudication (07/31/25) Muscle weakness (generalized) (07/31/25) Physical Therapy Treatment Note PT OP: Lower Back/Lower Extremity Start: 06/07/25 19:56 Freq: Status: Active Protocol: Document 07/31/25 09:49 JZ (Rec: 07/31/25 10:32 JZ [id number]) Out-Patient Physical Therapy Visit Information Visit Information Visit Start Time 09:50 Visit Stop Time 10:30 Visit Number 8 Number of HOOKER INSPECTOR Visits 0 Progress Note Due 08/10/25 Precautions Precautions Back surgery 03/28 (s/p L4-L5 laminectomy with Coflex stabilization device for stenosis and spondylolisthesis ), Shoulder surgery 2020, Thyroid disorder. 06/21/25: Pt was told by doctor, only restriction/ caution exessive flexion downward dog. OP-PT Subjective Patient Comments Patient Comments Patient reports her symptoms were quite increased last week. She had an injection in her piriformis yesterday and reports that her symptoms have been much better since then. She only has a slight pain level in her low back. Therapeutic Exercises Supine Exercises Supine hip bridges Reps/Minutes 2x10 Prone Exercises Cat cow Resistance x20 Sitting Exercises Supine lumbar rotation Reps/Minutes x5 each side Comments Leg across body Seated hip hinge Reps/Minutes x20 Piriformis stretch Reps/Minutes x20, 3 hold Seated lumbar extension Reps/Minutes 2x10 Standing Exercises Standing hip hinge Reps/Minutes 2x10 Comments cues for posterior hip translation Physical Therapy Assessment Goals Four Impairment Sitting tolerance Short Term Goal (STG Patient will report sitting for >25 minutes at a time ) with no more than a 1 point increase in pain levels. (added 07/11/2025) STG Duration 3 weeks Group Home Goal (LTG) Patient will report sitting for >35 minutes at a time with no more than a 1 point increase in pain levels. (added 07/11/2025) LTG Duration 6 week Three Impairment Core weakness (3/5) with LBP in sitting Short Term Goal (STG Body mechanics training for ADLS ) STG Duration 07/12/25 Group Home Goal (LTG) Improve core strength to 4/5, with pt able to sit for > 5' without muscle fatigue. LTG Duration 08/09/25 Two Impairment Soft tissue dysfunction with pain/muscle spasms of LB with sitting Short Term Goal (STG Improve well healed scar mobility ) STG Duration 07/12/25 Layboy Operator Goal (LTG) Improve lumbar soft tissue mobility with pt able to sit for 30 minutes or more without onset of ms spasms in the LB. 06/25/25: Pt reports able to side comfortably for 20-30 min now. LTG Duration 08/09/25, updated 06/25/25 One Impairment Lacks appropriate self care HEP Group Home Goal (LTG) Pt will be independent with a HEP to improve trunk flex , thoracic mobility, and core/LE strength without onset of low back ms spasms. 06/19/25: added TA trng and TA KFO, TA marching, Resisted rows. 06/25/25: Pt completing 3 HEP supine ex routinely, TA KFO, marching, and TA activation. LTG Duration 08/09/25 updated 06/25/25 Assessment Summary Assessment Treatment focused on gentle movement with reduced loading relative to previous sessions because of recent injection. Patient tolerated treatment well with no large increases in symptoms. Plan next session to follow up on response to today's session and continue with plan of care. Physical Therapy Plan Frequency and Duration Frequency of 2x/Week Treatment Duration of 8 treatment (weeks) Plan of Care Start 06/12/25 Date Plan of Care End 08/09/25 Date Next Visit Focus/Plan Next Visit Plan Follow up on HEP and response to today's session. Trial gentle loading with hip hinge movements. Current HEP: - Cat cows - Piriformis stretch seated (up and down) - Supine sciatic nerve glide - Seated sciatic nerve glide - Seated lumbar extension
--- NOTE | 2025-07-31 10:37 | PT.OTN ---
Current Diagnoses Spinal stenosis, lumbar region without neurogenic claudication (07/31/25) Muscle weakness (generalized) (07/31/25) Physical Therapy Treatment Note PT OP: Lower Back/Lower Extremity Start: 06/07/25 19:56 Freq: Status: Active Protocol: Document 07/31/25 09:49 JZ (Rec: 07/31/25 10:32 JZ [id number]) Out-Patient Physical Therapy Visit Information Visit Information Visit Start Time 09:50 Visit Stop Time 10:30 Visit Number 8 Number of SALES MARKETING MANAGER Visits 0 Progress Note Due 08/10/25 Precautions Precautions Back surgery 03/28 (s/p L4-L5 laminectomy with Coflex stabilization device for stenosis and spondylolisthesis ), Shoulder surgery 2020, Thyroid disorder. 06/21/25: Pt was told by doctor, only restriction/ caution exessive flexion downward dog. OP-PT Subjective Patient Comments Patient Comments Patient reports her symptoms were quite increased last week. She had an injection in her piriformis yesterday and reports that her symptoms have been much better since then. She only has a slight pain level in her low back. Therapeutic Exercises Supine Exercises Supine hip bridges Reps/Minutes 2x10 Prone Exercises Cat cow Resistance x20 Sitting Exercises Supine lumbar rotation Reps/Minutes x5 each side Comments Leg across body Seated hip hinge Reps/Minutes x20 Piriformis stretch Reps/Minutes x20, 3 hold Seated lumbar extension Reps/Minutes 2x10 Standing Exercises Standing hip hinge Reps/Minutes 2x10 Comments cues for posterior hip translation Physical Therapy Assessment Goals Four Impairment Sitting tolerance Short Term Goal (STG Patient will report sitting for >25 minutes at a time ) with no more than a 1 point increase in pain levels. (added 07/11/2025) STG Duration 3 weeks Mcc Goal (LTG) Patient will report sitting for >35 minutes at a time with no more than a 1 point increase in pain levels. (added 07/11/2025) LTG Duration 6 week Three Impairment Core weakness (3/5) with LBP in sitting Short Term Goal (STG Body mechanics training for ADLS ) STG Duration 07/12/25 Mcc Goal (LTG) Improve core strength to 4/5, with pt able to sit for > 5' without muscle fatigue. LTG Duration 08/09/25 Two Impairment Soft tissue dysfunction with pain/muscle spasms of LB with sitting Short Term Goal (STG Improve well healed scar mobility ) STG Duration 07/12/25 Driver Lifter Of Sanitation Truck Goal (LTG) Improve lumbar soft tissue mobility with pt able to sit for 30 minutes or more without onset of ms spasms in the LB. 06/25/25: Pt reports able to side comfortably for 20-30 min now. LTG Duration 08/09/25, updated 06/25/25 One Impairment Lacks appropriate self care HEP Mcc Goal (LTG) Pt will be independent with a HEP to improve trunk flex , thoracic mobility, and core/LE strength without onset of low back ms spasms. 06/19/25: added TA trng and TA KFO, TA marching, Resisted rows. 06/25/25: Pt completing 3 HEP supine ex routinely, TA KFO, marching, and TA activation. LTG Duration 08/09/25 updated 06/25/25 Assessment Summary Assessment Treatment focused on gentle movement with reduced loading relative to previous sessions because of recent injection. Patient tolerated treatment well with no large increases in symptoms. Plan next session to follow up on response to today's session and continue with plan of care. Physical Therapy Plan Frequency and Duration Frequency of 2x/Week Treatment Duration of 8 treatment (weeks) Plan of Care Start 06/12/25 Date Plan of Care End 08/09/25 Date Next Visit Focus/Plan Next Visit Plan Follow up on HEP and response to today's session. Trial gentle loading with hip hinge movements. Current HEP: - Cat cows - Piriformis stretch seated (up and down) - Supine sciatic nerve glide - Seated sciatic nerve glide - Seated lumbar extension
--- NOTE | 2025-08-08 10:40 | PT.OPPOC ---
Physical, Occupational & Speech Therapy At [facility] Current Diagnoses Spinal stenosis, lumbar region without neurogenic claudication (08/08/25) Muscle weakness (generalized) (08/08/25) Visit Care Team Role Provider Type Israel Leyva DO Family Provider Physician Primary Care Provider Specialty: Family Practice Address: [address] [place] [address], [id number] Email: [email or web address] Aidan Lynch MD Attending Provider Non-Staff Referring Provider Specialty: Neurosurgery Address: [address] [place] [address], [phone] Email: Plan Of Care PT OP: Lower Back/Lower Extremity Start: 06/07/25 19:56 Freq: Status: Active Protocol: Document 08/08/25 09:54 MAXX (Rec: 08/08/25 10:40 MAXX [id number]) Out-Patient Physical Therapy Visit Information Visit Information Visit Type Progress Note Visit Start Time 09:50 Visit Stop Time 10:30 Visit Number 9 Number of CAFET[employer] OR LUNCHROOM CHECKER Visits 0 Progress Note Due 09/07/25 Precautions Precautions Back surgery 03/28 (s/p L4-L5 laminectomy with Coflex stabilization device for stenosis and spondylolisthesis ), Shoulder surgery 2020, Thyroid disorder. 06/21/25: Pt was told by doctor, only restriction/ caution exessive flexion downward dog. OP-PT Subjective Patient Comments Patient Comments Patient reports her symptoms were a little increased last week. This week her symptoms have been much improved. She reports overall she thinks she has made some improvement with pain frequency since starting therapy but she is still dealing with symptoms in her R and L hip. She reports her GROC is 40% since starting therapy. She notes the pain is no longer waking her up at night and is not as consistent as previously. Therapeutic Exercises Supine Exercises Prone press up Reps/Minutes x20, 3 Supine hip bridges Reps/Minutes 2x10 Prone Exercises Cat cow Resistance x20 Sitting Exercises Seated hip hinge Reps/Minutes x20 Seated sciatic nerve glide Sitting Exercise Performed in supine today Name Reps/Minutes 2x15 Comments Resting foot on stool due to R knee pain Seated lumbar extension Reps/Minutes 2x10 Standing Exercises Standing hip hinge Reps/Minutes 2x10 Comments cues for posterior hip translation Physical Therapy Assessment Goals Four Impairment Sitting tolerance Short Term Goal (STG Patient will report sitting for >25 minutes at a time ) with no more than a 1 point increase in pain levels. (added 07/11/2025) 08/08/2025 - In progress (20 minutes before increased pain) STG Duration 3 weeks Stretcher Helper Goal (LTG) Patient will report sitting for >35 minutes at a time with no more than a 1 point increase in pain levels. (added 07/11/2025) 08/08/2025 - In progress (20 minutes before increased pain) LTG Duration 6 week Three Impairment Core weakness (3/5) with LBP in sitting Short Term Goal (STG Body mechanics training for ADLS ) STG Duration 07/12/25 Stretcher Helper Goal (LTG) Improve core strength to 4/5, with pt able to sit for > 5' without muscle fatigue. Met (08/08/25) LTG Duration 08/09/25 Two Impairment Soft tissue dysfunction with pain/muscle spasms of LB with sitting Short Term Goal (STG Improve well healed scar mobility ) STG Duration 07/12/25 Stretcher Helper Goal (LTG) Improve lumbar soft tissue mobility with pt able to sit for 30 minutes or more without onset of ms spasms in the LB. 06/25/25: Pt reports able to side comfortably for 20-30 min now. LTG Duration 08/09/25, updated 06/25/25 One Impairment Lacks appropriate self care HEP Stretcher Helper Goal (LTG) Pt will be independent with a HEP to improve trunk flex , thoracic mobility, and core/LE strength without onset of low back ms spasms. 06/19/25: added TA trng and TA KFO, TA marching, Resisted rows. 06/25/25: Pt completing 3 HEP supine ex routinely, TA KFO, marching, and TA activation. LTG Duration 08/09/25 updated 06/25/25 Assessment Summary Assessment Patient presenting to PT after 8 PT visits s/p L4-L5 laminectomy with Coflex stabilization in late March 2025 . Patient continues to have symptoms in her back and down her legs when sitting that has resulting in her self-limiting her activity levels (see subjective section). Further investigation revealed peripheralization of symptoms with flexion repeated movement testing and centralization with extension repeated movements indicating extension movement preference. Patient has made improvements with subjective function (see GROC), and sitting tolerance, and pain levels but still feels limited by her symptoms . Patient will continue to benefit from PT to manage symptoms, and guide graded return to activity. Physical Therapy Plan Frequency and Duration Frequency of 2x/Week Treatment Duration of 8 treatment (weeks) Plan of Care Start 06/12/25 Date Plan of Care End 11/06/25 Date Next Visit Focus/Plan Next Note Type Treatment Note Next Visit Plan Follow up on HEP and response to today's session. Trial gentle loading with hip hinge movements. Current HEP: - Cat cows - Piriformis stretch seated (up and down) - Supine sciatic nerve glide - Seated sciatic nerve glide - Seated lumbar extension Plan of Care Dates Plan of Care Start Date 06/12/25 Plan of Care End Date 11/06/25 Electronically Signed by: Roseanne Welch, PT 08/08/25 [id number] If you are in agreement with this Plan of Care, please return a signed and dated copy. I have reviewed this Plan of Care and certify that the skilled therapy services above are required to meet the patient?s needs. Physician Signature Date Printed Name and Credentials Clinical Instructor Signature Printed Name and Credentials
--- NOTE | 2025-09-14 13:17 | PT.OPDS ---
Current Diagnoses Spinal stenosis, lumbar region without neurogenic claudication (08/08/25) Muscle weakness (generalized) (08/08/25) Visit Care Team Role Provider Type Israel Leyva DO Family Provider Physician Primary Care Provider Specialty: Family Practice Address: [address] [place] [address], [phone] Email: [email or web address] Aidan Lynch MD Attending Provider Non-Staff Referring Provider Specialty: Neurosurgery Address: [address] [place] [address], [phone] Email: Visit Number Visit Number 9 Discharge Summary PT OP: Lower Back/Lower Extremity Start: 06/07/25 19:56 Freq: Status: Active Protocol: Document 09/14/25 13:15 MAXX (Rec: 09/14/25 13:17 MAXX [id number]) Out-Patient Physical Therapy Visit Information Visit Information Visit Type Discharge Summary Physical Therapy Assessment Assessment Summary Assessment Patient has not attended PT in over 30 days and has not scheduled more visits. Episode of care will be discharged at this time due to lack of follow up. Please reach out to [facility] Physical Therapy department with any questions.
== END 2025-09-18 09:33 | disposition home or self-care (01) ==
LOC: PHYS 09:45
PROVIDERS: Family Provider Family Medicine; PCP Family Medicine; Referring Provider Neurological Surgery; Visit Provider Neurological Surgery
DX: M48.061 Spinal stenosis, lumbar region without neurogenic claudication (principal); M62.81 Muscle weakness (generalized)
CPT/HCPCS: 97110; 97112; 97140; 97162; 97530; 97535